=== PATIENT | female | born 1955 | race Caucasian/White ===

== ENCOUNTER 2020-11-17 07:29 | Outpatient (CLI) | payer MEDICARE, SELFPAY ==
--- NOTE | ~2020-11-17 | MM_ITS ---
EXAMINATION: MM screening anaid BI w jennie HISTORY: Screening TECHNIQUE: Craniocaudal and mediolateral oblique 3-D tomosynthesis images were obtained and synthetic 2-D images were generated. CAD analysis was submitted and interpreted. COMPARISON: Comparison to multiple prior studies sequentially, with oldest reviewed study dated 03/21. BREAST PARENCHYMAL COMPOSITION: There are scattered areas of fibroglandular density. FINDINGS: There is no evidence of suspicious mass, calcification, or architectural distortion to sugg est malignancy in either breast. There has been no suspicious interval change. IMPRESSION: 1. No mammographic evidence of malignancy. 2. Recommend routine screening mammography in one year. BI-RADS Category 1: Negative Reviewed, dictated and finalized at location A. LE BOX MAKER
== END 2020-11-17 07:30 | disposition home or self-care (01) ==
PROVIDERS: PCP Family Medicine; Visit Provider Physician Assistant Medical
DX: Z12.31 Encounter for screening mammogram for malignant neoplasm of breast (principal)
CPT/HCPCS: 77063; 77067

== ENCOUNTER 2021-10-16 00:29 | Day surgery (SDC) | payer MEDICARE, SELFPAY ==
[2021-10-04 13:52] VITALS: BMI 20.4
--- NOTE | 2021-10-14 09:36 | PM.HPGS ---
History of Present Illness History of Present Illness Consent: Risks, benefits, and alternatives have been discussed and questions answered. Patient agrees to proceed with procedure. Chief complaint: diarrhea Narrative: Gena Tomlinson is a 65 year old female with diarrhea for the past few months. this has finally improved.She also has positive hemoccult. Review of Systems Review of Systems: All systems reviewed & are unremarkable except as noted in HPI and below PMFSH Past Medical History Medical History BMI 20.0-20.9, adult Surgical History Surgical History Hx of appendectomy 1967 Family History Family History Father Family history of elevated blood lipids Family history of malignant neoplasm Mother Family history of malignant melanoma Sibling Breast cancer Follicular lymphoma Alzheimer's disease Other Family history of osteoporosis Social History Social History Smoking status: Never smoker Second hand tobacco smoke exposure: No Alcohol intake: never Substance use: never Substance use type: does not use Living arrangements: with family 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 Gender identity (if verbalized by the patient): Female Spiritual care concerns: No Meds Home Medications and Allergies Home Medications Medication Instructions Recorded Confirmed Type rosuvastatin 20 mg tablet 20 mg PO DAILY #90 tablet 10/15/21 10/16/21 Rx Allergies Allergy/AdvReac Type Severity Reaction Status Date / Time doxycycline Allergy Mild Rash Verified 10/16/21 06:53 sulfamethoxazole Allergy Rash Verified 10/16/21 06:53 [From Bactrim] trimethoprim [From Bactrim] Allergy Rash Verified 10/16/21 06:53 amoxicillin [From Augmentin] AdvReac Hives Verified 10/16/21 06:53 clavulanic acid AdvReac Hives Verified 10/16/21 06:53 [From Augmentin] Exam Const: General: alert Orientation/consciousness: patient oriented x3 Resp: Auscultation: clear to auscultation bilaterally Cardio: Rhythm: regular rhythm GI: GI Palp: Yes Soft to palpation and No Tenderness to palpation present (GI) Neuro: General: patient oriented x3 Assessment and Plan Assessment and plan (1) Diarrhea: Code(s): R19.7 - Diarrhea, unspecified Status: Acute Assessment and Plan: Colonoscopy with possible biopsy or polypectomy or cautery or injection of substances.
[2021-10-16 06:40] VITALS: BP 152/87; PULSE 92; RESP 18; TEMP 37.2; O2SAT 99; BMI 20.5
[2021-10-16] MEDS: LACTATED RINGERS 1,000 ML 150 ML IV CONT (07:03)
--- NOTE | 2021-10-16 07:19 | P.PNAN_ITS ---
Anes - Initial Pre Proc Eval Procedure: Operation Date: 10/16/21 08:00 Proposed Procedures p Colonoscopy - Nicolás Sanchez MD Date/Time: 10/16/21 07:19 Surgeon: Nicolás Sanchez MD Pre Op Diagnosis: diarrhea Patient Data Age: 65 Gender: F Height: 1.73 m Weight: 61.4 kg Last Vital Signs Temp 37.2 C 10/16/21 06:40 Pulse 92 10/16/21 06:40 Resp 18 10/16/21 06:40 BP 152/87 H 10/16/21 06:40 Pulse Ox 99 10/16/21 06:40 Allergies Allergy/AdvReac Type Severity Reaction Status Date / Time doxycycline Allergy Mild Rash Verified 10/16/21 06:53 sulfamethoxazole Allergy Rash Verified 10/16/21 06:53 [From Bactrim] trimethoprim [From Bactrim] Allergy Rash Verified 10/16/21 06:53 amoxicillin [From Augmentin] AdvReac Hives Verified 10/16/21 06:53 clavulanic acid AdvReac Hives Verified 10/16/21 06:53 [From Augmentin] Home Medications Medication Instructions Recorded Confirmed Type rosuvastatin 20 mg tablet 20 mg PO DAILY #90 tablet 10/15/21 10/16/21 Rx Patient hx anesthesia problems: none Family hx anesthesia problems: none Results Review: All pre-operative results and documents have been reviewed as part of the pre-operative evaluation. [facility] Past Medical History Medical History BMI 20.0-20.9, adult Surgical History Surgical History Hx of appendectomy 1967 Family History Family History Father Family history of elevated blood lipids Family history of malignant neoplasm Mother Family history of malignant melanoma Sibling Breast cancer Follicular lymphoma Alzheimer's disease Other Family history of osteoporosis Social History Social History Smoking status: Never smoker Second hand tobacco smoke exposure: No Alcohol intake: never Substance use: never Substance use type: does not use Living arrangements: with family 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 Informed Consent: The patient's anesthetic plan and its attendant risks and benefits were discussed with the patient/family/POA. Questions were solicited and answers provided to the satisfaction of the patient/family/POA.
[2021-10-16 08:15] VITALS: BP 114/67; PULSE 77; RESP 19; O2SAT 99
[2021-10-16 08:25] VITALS: BP 132/78; PULSE 70; RESP 15; O2SAT 100
[2021-10-16 08:35] VITALS: BP 156/89; PULSE 67; RESP 19; O2SAT 100
== END 2021-10-16 08:54 | disposition home or self-care (01) ==
PROVIDERS: PCP Family Medicine; Visit Provider Internal Medicine Gastroenterology
PROC: 0DJD8ZZ Inspection of Lower Intestinal Tract, Via Natural or Artificial Opening Endoscopic (ICD-10-PCS; CPT 45378; principal; 2021-10-16 08:00)
DX: R19.7 Diarrhea, unspecified (principal); R19.5 Other fecal abnormalities
CPT/HCPCS: 45378; J2704; J7120

== ENCOUNTER 2022-02-02 08:07 | Outpatient (CLI) | payer MEDICARE, SELFPAY ==
--- NOTE | ~2022-02-02 | MM_ITS ---
EXAMINATION: MM screening anaid BI w jennie HISTORY: Screening mammogram TECHNIQUE: Craniocaudal and mediolateral oblique 3-D tomosynthesis images were obtained and synthetic 2-D images were generated. CAD analysis was submitted and interpreted. COMPARISON: 11/17/2020, 09/18/2019, 06/25/2018 bilateral screening mammogram examinations BREAST PARENCHYMAL COMPOSITION: There are scattered areas of fibroglandular density. FINDINGS: There is no evidence of suspicious mass, calcification, or architectural distortion to sugg est malignancy in either breast. There has been no suspicious interval change. IMPRESSION: 1. No mammographic evidence of malignancy. 2. Recommend routine screening mammography in one year. BI-RADS Category 1: Negative Reviewed, dictated and finalized at location A.
== END 2022-02-02 08:08 | disposition home or self-care (01) ==
LOC: ANHIMG 08:09
PROVIDERS: PCP Family Medicine; Visit Provider Physician Assistant Medical
DX: Z12.31 Encounter for screening mammogram for malignant neoplasm of breast (principal)
CPT/HCPCS: 77063; 77067

== ENCOUNTER → 2022-06-12 13:54 | Outpatient (CLI) | payer MEDICARE, SELFPAY ==
--- NOTE | ~2022-06-12 | XR_ITS ---
XR clavicle LT DATE: 06/12/2022 14:05 INDICATION: Acquired deformity TECHNIQUE: AP and angled AP views of left clavicle COMPARISON: None FINDINGS: There is osteopenia. No fracture or dislocation, periosteal reaction or bone destruction of the left clavicle. Normal alig nment at the left sternoclavicular and acromioclavicular joints. IMPRESSION: Osteopenia; otherwise negative Reviewed, dictated and finalized at location B.
== END ==
PROVIDERS: PCP Family Medicine; Visit Provider Physician Assistant Medical
DX: M95.8 Other specified acquired deformities of musculoskeletal system (principal); M85.812 Other specified disorders of bone density and structure, left shoulder
CPT/HCPCS: 73000

== ENCOUNTER → 2022-09-12 12:15 | Outpatient (CLI) | payer MEDICARE, SELFPAY ==
--- NOTE | ~2022-09-12 | DEXA_ITS ---
Bone Density Report Name: XAVIER ROSENTHAL Age: 66 Sex: Female Ethnicity: White Date of : 1955 Indication: postmenopausal; screening for osteoporosis; height loss; Referring Provider: Kevin Oneil Study: Bone densitometry was performed. Exam Date: September 12, 2022 Accession number: [id number] Bone Density: Region BMD T-score Z-score Classification AP Spine (L1-L4) 0.881 -1.5 0.5 Osteopenia Femoral Neck (Left) 0.720 -1.2 0.6 Osteopenia Total Hip (Left) 0.926 -0.1 1.3 Normal Femoral Neck (Right) 0.709 -1.3 0.5 Osteopenia Total Hip (Right) 0.892 -0.4 1.0 Normal Total Hip Mean 0.909 -0.3 1.2 Normal World Health Organization criteria for BMD impression classify patients as: Normal (T-score at or above -1.0), Osteopenia (T-score between -1.0 and -2.5), or Osteoporosis (T-score at or below -2.5). 10-year Fracture Risk(1): Major Osteoporotic Fracture 8.3% Hip Fracture 0.9% Reported Risk Factors: [place] (), Neck BMD=0.709, BMI=21.7 (1) FRAX(R) Version 3.08. Fracture probability calculated for an untreated patient. Fracture probability may be lower if the patient has received treatment. Clinical Information Provided by Patient: Has used the following medications: Vitamin D, Calcium Patient maximum height was 67.75 Menopause Age: 49 Drinks caffeinated beverages Onset of menses at age 11 Number of children 5 Impression: The patient has low bone mass, based on the Total Spine T-score. The patient has an estimated ten-year risk of hip fracture of 0.9% and an estimated ten-year risk of major fracture of 8.3%, based on the WHO FRAX algorithm. Discussion: BONE DENSITY IS LOW AT ONE OR MORE SKELETAL SITES. This patient's lowest T-score is low at one or more skeletal sites. It meets the World Health Organization's (WHO) criteria for ?low bone mass? (T-score between -1.0 and -2.5). The patient's 10-year risk of fracture as calculated by FRAX is less than the threshold where pharmacological therapy is recommended by the National Osteoporosis Foundation (NOF). However, all treatment decisions require clinical judgment and consideration of individual patient factors, including patient preferences, comorbidities, previous drug use, risk factors not captured in the FRAX model (e.g., frailty, falls, vitamin D deficiency, increased bone turnover, interval significant decline in bone density) and possible under or overestimation of fracture risk by FRAX. The patient should follow a healthful lifestyle (good nutrition with adequate calcium and vitamin D, and appropriate weight-bearing exercise). Follow-Up: Consider repeating this study in 2 to 3 years to reassess this patient's status, or sooner if there is some new clinical indication. Reported by: MARCO on 09/12/2022 12:29:00 PM. ____
== END ==
PROVIDERS: PCP Family Medicine; Visit Provider Nurse Practitioner Family
DX: Z78.0 Asymptomatic menopausal state (principal); M85.88 Other specified disorders of bone density and structure, other site; M85.852 Other specified disorders of bone density and structure, left thigh; M85.851 Other specified disorders of bone density and structure, right thigh
CPT/HCPCS: 77080

== ENCOUNTER 2023-01-09 13:43 | Observation (INO) | payer MEDICARE, SELFPAY ==
[2023-01-09] VITALS (35 sets, daily range): BP systolic 134–176; BP diastolic 80–104; PULSE 78–113; RESP 9–22; TEMP 36.4; O2SAT 97–100; BMI 20.7
--- NOTE | ~2023-01-09 | MR_ITS ---
EXAMINATION: MR brain/brain stem wo/w con DATE: 01/10/2023 09:18 INDICATION: Vertigo. TECHNIQUE: Magnetic resonance imaging (MRI) of the brain and brainstem was performed without and with 12 mL MultiHance intravenous contrast. COMPARISON: Head CT 01/09/2023 FINDINGS: There are scattered areas of nonspecific increased T2-weighted signal intensity in the cere bral white matter. There is no intracranial hemorrhage, acute infarction, or abnormal intracranial ma ss lesion. The ventricles are normal in size. The paranasal sinuses are clear. The orbits are normal. The mastoid air cells are normal. IMPRESSION: 1. Moderate nonspecific cerebral white matter disease, which likely represents chronic small vessel i schemic disease. Reviewed, dictated and finalized at location A. TAL RETOUCHER IMPRESSION: 1. Moderate nonspecific cerebral white matter disease, which likely represents chronic small vessel ischemic disease.
--- NOTE | ~2023-01-09 | XR_ITS ---
EXAMINATION: XR chest 1V portable DATE: 01/09/2023 15:25 INDICATION: Dizziness. Nausea and vomiting. TECHNIQUE: A single frontal view of the chest was obtained. COMPARISON: None. FINDINGS: There is no pneumonia, pleural effusion, or pneumothorax. The heart size is normal. IMPRESSION: 1. No acute cardiopulmonary disease. Reviewed, dictated and finalized at location A. DHOOD TEACHER
--- NOTE | ~2023-01-09 | US_ITS ---
EXAMINATION: US carotid duplex BI DATE: 01/10/2023 09:32 INDICATION: Dizziness. TECHNIQUE: Grayscale, color Doppler, and pulsed Doppler images of the cervical carotid arteries were obtained. The degree of vessel stenosis is placed in one of the following categories: normal, <50%, 5 0-69%, >=70% but less than near-occlusion, near-occlusion, or total occlusion. Note that percent sten osis relative to normal distal artery lumen diameter is indirectly measured from velocity measurement s as described by Dwaine, et al. Radiology 2003; 229:[id number]. COMPARISON: None. FINDINGS: RIGHT: The right common carotid artery (CCA) peak systolic velocity (PSV) is 91 cm/s. The right internal car otid artery (ICA) PSV is 65 cm/s. The right ICA end-diastolic velocity (EDV) is 17 cm/s. The right IC A/CCA PSV ratio is 0.7. Grayscale and color Doppler images yield an estimate of <50% diameter reducti on from plaque in the ICA. There is antegrade flow in the right vertebral artery. LEFT: The left CCA PSV is 117 cm/s. The left ICA PSV is 71 cm/s. The left ICA EDV is 22 cm/s. The left ICA/ CCA PSV ratio is 0.6. Grayscale and color Doppler images yield an estimate of <50% diameter reduction from plaque in the ICA. There is antegrade flow in the left vertebral artery. IMPRESSION: 1. <50% stenosis in the right internal carotid artery. 2. <50% stenosis in the left internal carotid artery. Reviewed, dictated and finalized at location A. UITMENT MANAGER
--- NOTE | ~2023-01-09 | CT_ITS ---
EXAMINATION: CT brain wo con DATE: 01/09/2023 18:01 INDICATION: dizziness . TECHNIQUE: Computed tomography (CT) of the head was performed without intravenous contrast. The mA wa s adjusted according to patient size. Iterative reconstruction technique was employed. The dose-lengt h product was 605.33 mGy-cm. COMPARISON: None. FINDINGS: No acute intracranial hemorrhage or extra-axial fluid collection. No hydrocephalus, mass, or herniation. No acute ischemic infarct. Unremarkable dural venous sinus attenuation. No acute osseous abnormality. Minimal bilateral maxillary mucosal thickening, the remaining aerated spaces are clear. Mild atrophy and chronic white matter change. Atherosclerotic intracranial calcification. 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 Minimal right basal ganglia calcification. IMPRESSION: No acute intracranial process. Reviewed, dictated and finalized at location K. 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
--- NOTE | 2023-01-09 13:49 | ECG_ITS ---
Measurements Intervals [place] Rate: 87 P: 77 WY: 187 QRS: 1 QRSD: 92 T: 72 QT: 373 QTc: 449 Interpretive Statements SINUS RHYTHM POSSIBLE RIGHT ATRIAL ENLARGEMENT LEFT ATRIAL ENLARGEMENT CANNOT RULE OUT SEPTAL INFARCT, AGE INDETERMINATE BASELINE ARTIFACT- I, II, III ABNORMAL ECG NO PREVIOUS ECG AVAILABLE FOR COMPARISON Electronically Signed On 01-09-2023 14:17:39 CONSTRUCTION ANALYST by Laz Vaughn D.O.
[2023-01-09 14:10] LABS: Basophils Absolute Auto 0.1 K/mm3 (0.0-0.1); Basophils Percent Auto 0.6 % (0.2-1.2); Eosinophils Percent Auto 0.1 % (0-4.4); Hematocrit 45.5 % (37.0-47.0); Hemoglobin 14.7 g/dL (12.0-15.0); Immature Granulocyte Absolute 0.03 K/mm3 (0.00-0.031); Immature Granulocyte Percent A 0.3 % (0-0.5); Lymphocytes Absolute Auto 1.22 K/mm3 (0.9-3.2); Lymphocytes Percent Auto 11.6 % (18.3-44.2); Mean Corpuscular HGB Conc 32.3 g/dl (32-36); Mean Corpuscular Hemoglobin 30.8 pg (26-34); Mean Corpuscular Volume 95.2 fl (80-100); Mean Platelet Volume 10.9 fl (7.4-10.4); Monocytes Absolute Auto 0.2 K/mm3 (0.1-0.6); Monocytes Percent Auto 1.6 % (2.6-8.5); Neutrophils Absolute Auto 9.1 K/mm3 (1.3-6.7); Neutrophils Percent Auto 85.8 % (45.5-73.1); Platelet Count Result 311 k/mm3 (150-375); Red Blood Count 4.78 M/mm3 (4.2-5.4); Red Cell Distribution Width 13.7 % (11.5-14.5); White Blood Count 10.6 K/mm3 (4.5-10.0)
[2023-01-09 14:12] LABS: Alanine Aminotransferase 26 U/L (6-35); Albumin Level 4.4 g/dL (3.5-5.1); Alkaline Phosphatase 99 U/L (38-126); Anion Gap 8 mmol/L (8-16); Aspartate Amino Transferase 30 U/L (14-36); Bilirubin,Total 0.7 mg/dL (0.2-1.3); Blood Urea Nitrogen 19 mg/dL (7-17); Calcium 8.5 mg/dL (8.4-10.2); Carbon Dioxide 23 mmol/L (22-30); Chloride 107 mmol/L (98-107); Estimated CRCL calculation 73 ml/min; Estimated Glomerular Filt Rate > 60; Glucose 149 mg/dL (65-110); Potassium 3.8 mmol/L (3.4-5.0); Sodium 138 mmol/L (137-145)
--- NOTE | 2023-01-09 15:09 | PC.NURSE ---
attempted to move patient for orthostatic vitals again. pt does not want to be moved, states movement makes nausea and spinning much worse. pt is diaphoretic and flushed lying flat in bed. pt slightly hypertensive, but pt stating very anxious at this time.
--- NOTE | 2023-01-09 15:11 | ED.DIZZY ---
HPI - Dizziness General Chief Complaint: Dizziness Stated Complaint: UNSTEADY GAIT, N/V, RODRIGUEZ Time Seen by Provider: 01/09/23 15:07 Source: patient, family and EMS Mode of arrival: EMS History of Present Illness HPI Narrative: 67 years old white female came to the emergency room by ambulance with her complaining of sudden onset of dizziness after got out of bed this morning at 3 AM to go to the bathroom. Everything was spinning, associated with nausea and vomiting. Patient was not able to walk and was crawling on the floor at that time. She denies any headache, fever, chills, shortness of breath, chest pain, back pain or abdominal pain. History of similar symptoms years ago. The above symptoms get worse with any movement, get better laying still. Related Data Home Medications Medication Instructions Recorded Confirmed cholecalciferol (vitamin D3) 50 50 mcg PO DAILY 01/08/22 05/03/22 mcg (2,000 unit) capsule Allergies Allergy/AdvReac Type Severity Reaction Status Date / Time doxycycline Allergy Mild Rash Verified 01/09/23 13:54 sulfamethoxazole Allergy Rash Verified 01/09/23 13:54 [From Bactrim] trimethoprim [From Bactrim] Allergy Rash Verified 01/09/23 13:54 clavulanic acid AdvReac Hives Verified 01/09/23 13:54 [From Augmentin] Review of Systems Review of Systems: All systems reviewed & are unremarkable except as noted in HPI and below PMFSH Past Medical History Medical History BMI 20.0-20.9, adult Surgical History Surgical History Hx of appendectomy 1967 Family History Family History Father Family history of elevated blood lipids Family history of malignant neoplasm Mother Family history of malignant melanoma Sibling Breast cancer Follicular lymphoma Alzheimer's disease Adult hypothyroidism Other Family history of osteoporosis Social History Social History Smoking status: Never smoker Second hand tobacco smoke exposure: No Alcohol intake: never Substance use: never Substance use type: does not use Living arrangements: with family Occupation/Education: occupation 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 Patient feels that she is ready to go home Date: 01/09/23 Time: 18:09 Vital Signs Vital signs: Vital Signs Temperature 36.4 C L 01/09/23 13:50 Pulse Rate 95 01/09/23 13:50 Respiratory Rate 16 01/09/23 13:50 Blood Pressure 176/104 H 01/09/23 13:50 Pulse Oximetry 99 01/09/23 13:50 Oxygen Delivery Room Air 01/09/23 13:50 Temperature 3
[2023-01-09 15:52] LABS: Appearance Urine Cloudy (Clear); Bacteria Urine None Seen /hpf; Bilirubin Urine Negative (Negative); Blood Urine Negative (Negative); Color Urine Yellow (Yellow); Glucose Urine UA Trace mg/dL (Negative); Ketones Urine 1+ mg/dL (Negative); Leukocyte Esterase Ur Negative LEU/UL (Negative); Need Manual Microscopic Reviewed; Nitrate Urine Negative (Negative); Non Pathogenic Casts 0-2; Protein Urine Negative (Negative); RBC Urine 0-2 /hpf (0-2); Specific Grav Ur 1.013 (1.001-1.035); Squamous Epithelial Cell Urine None seen /hpf (Few); Urobilinogen Urine 0.2 mg/dL (<2.0); WBC Urine 0-5 /hpf
[2023-01-09 15:53] LABS: Add Urine Microscopic? YES
[2023-01-09] MEDS: ONDANSETRON INJ 4 MG/2 ML VIAL 8 MG IV PUSH (15:57)
[2023-01-09] MEDS: MECLIZINE HCL 25 MG TABLET PO (16:01)
[2023-01-09] MEDS: diazePAM (*CRX) 5 MG TABLET PO (16:01)
[2023-01-09 16:09] LABS: Troponin I < 0.012 ng/mL (0.000-0.034)
[2023-01-09] MEDS: diazePAM INJ (*CRX) 10 MG/2 ML SYRINGE 5 MG IV PUSH (19:07)
--- NOTE | 2023-01-09 19:09 | PC.NURSE ---
bedside shift report given to vicky phelps
[2023-01-09] MEDS: ONDANSETRON INJ 4 MG/2 ML VIAL IV PUSH (23:05)
--- NOTE | 2023-01-09 23:21 | PM.IMHP ---
H&P: HPI History of Present Illness Date/Time: 01/09/23 23:21 Chief Complaint: Dizziness Narrative: This is a 67-year-old female patient came to the emergency room by ambulance today complaining of sudden onset of dizziness. She had no focal weakness no facial droop or slurred speech. The patient had a sudden onset of dizziness when she attempted to get out of bed at 3:00 a.m. this morning to go to the bathroom. She also had some nausea and vomiting with that. Patient stated that she had similar symptoms a year ago. The symptoms are worse with movement. As long she lay still she does not have this problem. White count mildly elevated 10.6. The patient did not attempt to take anything for this dizziness. She denies any fever chills. The patient was given Zofran, Antivert, Valium, and IV fluids in the emergency room. Head CT was read as no acute intracranial process. Chest x-ray was read as no acute cardiopulmonary disease. Patient is being admitted to observation status on the date of service of 01/09/2023. Review of Systems Review of Systems: See HPI All systems reviewed & are unremarkable except as noted in HPI and below Constitutional: Constitutional: Reports as per HPI and Reports no additional constitutional complaints Eyes: Eyes: Reports as per HPI and Reports no additional eye complaints ENT: Reports system reviewed and no additional complaints, except as documented and Reports Normal hearing present Cardiovascular: Cardiovascular: Reports no additional cardiovascular complaints Respiratory: Respiratory: Reports no additional respiratory complaints and Reports no additional respiratory complaints Gastrointestinal: Gastrointestinal: Reports as per HPI and Reports no additional gastrointestinal complaints Musculoskeletal: Musculoskeletal: Reports no additional musculoskeletal complaints Integumentary/Breasts: Skin/Breast: Reports system reviewed and no additional complaints, except as docu and Reports as per HPI Neurologic: Reports system reviewed and no additional complaints, except as documented, Reports as per HPI and Reports Normal hearing present Psychiatric: Psychiatric: Reports no additional psychiatric complaints and Reports as per HPI Endocrine: Endocrine: Reports no additional endocrine complaints Hematologic/Lymphatic: Hematologic/Lymphatic: Reports no additional hematologic/lymphatic complaints Allergic/Immunologic: Allergic/Immunologic: Reports no additional allergic/immunologic complaints [facility] Past Medical History Medical History (Updated 01/10/23 @ 00:04 by Sofía Cheung NP) BMI 20.0-20.9, adult Hyperlipidemia Osteopenia Pilonidal cyst without infection Removal of Surgical History Surgical History (Updated 01/10/23 @ 00:04 by Sofía Cheung NP) H/O dilation and curettage H/O umbilical hernia repair Hx of appendectomy 1967 Family History Family History Father Family history of elevated blood lipids Family history of malignant neoplasm Mother Family history of malignant melanoma Sibling Breast cancer Follicular lymphoma Alzheimer's disease Adult hypothyroidism Other Family history of osteoporosis Social History Social History (Updated 01/10/23 @ 00:08 by Sofía Cheung NP) Social History: The patient lives at home with her . 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 The patient has 5 children. She is a lifelong nonsmoker. Her is a durable power securities attorney for healthcare Code status full code Smoking status: Never smoker Second hand tobacco smoke exposure: No Alcohol intake: never Substance use: never Substance use type: does not use Lack of Transportation: No Lack of Food: Never True Current Housing: I Have Housing Concerned About Future Housing: No Difficulty Paying Gas/Kristie
--- NOTE | 2023-01-10 | ECHO_ITS ---
Patient Info Name: Gena Tomlinson Age: 67 years : 1955 Gender: Female Ht: 68 in Wt: 136 lbs BSA: 1.72 m2 HR: 76 bpm BP: 147 / 94 mmHg Technical Quality: Fair Exam Date: 01/10/2023 11:21 AM Exam Location: [facility] Pulmonary Exam Room: [facility] Patient Status: Outpatient Admit Date: 01/09/2023 Staff Ordering Physician: Sofía Cheung NP Passenger Rate Clerk: Karma William RDCS Attending Provider: Paulo Ryan MD Referring Physician: Skye CARCAMO; Exam Type: CA echo doppler color flow Study Info Indications - dizziness Complete two-dimensional, color flow and Doppler transthoracic echocardiogram is performed. Summary 1. Complete two-dimensional, color flow and Doppler transthoracic echocardiogram is performed. 2. Left ventricular chamber dimension is normal. 3. Left ventricular systolic function is normal, estimated at 60-65%. 4. The left ventricular diastolic function is grade I diastolic dysfunction. 5. E/e' 10 is mildly elevated. 6. There is mild aortic valve sclerosis. 7. There is trace mitral valve regurgitation. 8. There is trace tricuspid valve regurgitation. 9. No pulmonary hypertension, estimated pulmonary arterial systolic pressure is 26 mmHg. 10. There is trace pulmonic regurgitation. Left Ventricle E/e' 10 is mildly elevated. Left ventricular chamber dimension is normal. Left ventricular systolic function is normal, estimated at 60-65%. The left ventricular diastolic function is grade I diastolic dysfunction. Right Ventricle Right ventricular chamber dimension is normal. Right ventricular systolic function is normal. Left Atria Left atrial chamber dimension is normal. Right Atria Right atrial chamber dimension is normal. Aortic Valve The aortic valve is trileaflet. There is mild aortic valve sclerosis. There is no aortic valve stenosis. There is no aortic valve regurgitation. Pulmonic Valve There is trace pulmonic regurgitation. Mitral Valve There is no mitral valve stenosis. There is trace mitral valve regurgitation. Tricuspid Valve There is trace tricuspid valve regurgitation. No pulmonary hypertension, estimated pulmonary arterial systolic pressure is 26 mmHg. Pericardium/Pleural There is no pericardial effusion. Inferior Vena Cava Normal inferior vena cava with >50% collapse upon inspiration consistent with normal right atrial pressure, 5 mmHg. Aorta The aortic root size at the sinus of Valsalva is normal. Left Ventricular Outflow Tract Name Value Normal LVOT 2D LVOT Diameter 2.0 cm LVOT Doppler LVOT Peak Gradient 4 mmHg LVOT Mean Gradient 2 mmHg LVOT VTI 19 cm LVOT VTI/AV VTI Ratio 0.8 LVOT Stroke Volume 59 ml LVOT CO 13.4 l/min LVOT CI 7.8 l/min/m2 Pulmonic Valve Name Value Normal
[2023-01-10] MEDS: SODIUM CHLORIDE 0.9% IV 1,000 ML 100 ML IV CONT (00:38)
[2023-01-10 06:00] VITALS: BP 136/76; PULSE 93; RESP 14; TEMP 36.4; O2SAT 98
[2023-01-10 07:12] LABS: Basophils Absolute Auto 0.1 K/mm3 (0.0-0.1); Basophils Percent Auto 0.6 % (0.2-1.2); Eosinophils Percent Auto 0.2 % (0-4.4); Hematocrit 41.4 % (37.0-47.0); Hemoglobin 13.6 g/dL (12.0-15.0); Immature Granulocyte Absolute 0.09 K/mm3 (0.00-0.031); Immature Granulocyte Percent A 0.7 % (0-0.5); Lymphocytes Absolute Auto 1.72 K/mm3 (0.9-3.2); Lymphocytes Percent Auto 14.1 % (18.3-44.2); Mean Corpuscular HGB Conc 32.9 g/dl (32-36); Mean Corpuscular Hemoglobin 30.1 pg (26-34); Mean Corpuscular Volume 91.6 fl (80-100); Mean Platelet Volume 10.7 fl (7.4-10.4); Monocytes Absolute Auto 0.7 K/mm3 (0.1-0.6); Monocytes Percent Auto 5.4 % (2.6-8.5); Neutrophils Absolute Auto 9.7 K/mm3 (1.3-6.7); Platelet Count Result 326 k/mm3 (150-375); Red Blood Count 4.52 M/mm3 (4.2-5.4); Red Cell Distribution Width 13.8 % (11.5-14.5); White Blood Count 12.2 K/mm3 (4.5-10.0)
[2023-01-10 07:24] LABS: Alanine Aminotransferase 26 U/L (6-35); Albumin Level 3.9 g/dL (3.5-5.1); Alkaline Phosphatase 68 U/L (38-126); Anion Gap 7 mmol/L (8-16); Aspartate Amino Transferase 25 U/L (14-36); Bilirubin,Total 0.5 mg/dL (0.2-1.3); Blood Urea Nitrogen 22 mg/dL (7-17); Calcium 8.3 mg/dL (8.4-10.2); Carbon Dioxide 26 mmol/L (22-30); Chloride 105 mmol/L (98-107); Estimated CRCL calculation 64 ml/min; Estimated Glomerular Filt Rate > 60; Glucose 205 mg/dL (65-110); Magnesium 2.2 mg/dL (1.6-2.3); Phosphorus 3.1 mg/dL (2.5-4.5); Potassium 3.4 mmol/L (3.4-5.0); Sodium 138 mmol/L (137-145)
[2023-01-10 07:25] LABS: Lactic Acid Reflex 2.4 mmol/L (0.7-2.0)
[2023-01-10 07:57] LABS: Thyroid Stimulating Hormone Reflex 0.467 uIU/mL (0.465-4.68)
[2023-01-10] MEDS: ROSUVASTATIN 10 MG TABLET 20 MG PO (08:07)
[2023-01-10] MEDS: CHOLECALCIFEROL 1,000 UNITS TABLET 2000 UNITS PO (08:07)
[2023-01-10] MEDS: MECLIZINE HCL 25 MG TABLET PO ×2 (08:07→13:08)
[2023-01-10] MEDS: ASPIRIN 81 MG CHEWABLE TABLET PO (08:07)
[2023-01-10 10:06] LABS: Reflex Lactic Acid Yes or No Add Lactic
[2023-01-10 10:41] LABS: Lactic Acid 3.6 mmol/L (0.7-2.0)
[2023-01-10 14:00] VITALS: BP 126/102; BP 133/90; BP 135/74; PULSE 91; RESP 16; TEMP 36.6; O2SAT 98
[2023-01-10 15:37] LABS: Lactic Acid Reflex 1.3 mmol/L (0.7-2.0)
--- NOTE | 2023-01-10 16:13 | PM.DS ---
DS: Admitting Diagnosis Discharge Date 01/10/2023 Admitting Diagnosis Vertigo Elevated blood pressure reading Hyperlipidemia DS: Discharge Diagnosis Discharge Diagnosis (1) Vertigo: Code(s): R42 - Dizziness and giddiness Status: Acute Assessment and Plan: Likely BPPV Orthostatic blood pressures negative. Echo is ordered and results pending. MRI of the brain without acute infarction Carotid Doppler <50% right and left ICA Continue with Valium PRN Treated with IV fluids initially. Dizziness resolved. (2) Elevated blood pressure reading: Code(s): R03.0 - Elevated blood-pressure reading, without diagnosis of hypertension Status: Acute Assessment and Plan: P.r.n. hydralazine ordered but not given. BP 135/74 at discharge. Monitor (3) Hyperlipidemia: Code(s): E78.5 - Hyperlipidemia, unspecified Status: Chronic Assessment and Plan: Continue with rosuvastatin (4) Lactic acidosis: Code(s): E87.20 - Acidosis, unspecified Status: Acute Assessment and Plan: Lactic acid 2.4 to 3.6 to 1.3. WBC 12. Afebrile. No focal complaints suggestive of pneumonia, UTI, GI infection, meningitis or other infection. Patient is currently taking amoxicillin for dental procedure. UA negative Chest X-ray negative. No open wounds, abd pain or GI complaints. No nuchal rigidity and dizziness resolved with meclizine. No hypotension episode or concerns for hematochezia, melena or hematemesis. (5) Leukocytosis: Code(s): D72.829 - Elevated white blood cell count, unspecified Status: Acute Assessment and Plan: WBC 10 to 12. May be reactive. As above. DS: Summary Hospital Course Reason for hospitalization: Dizziness Hospital Course: Gena Tomlinson?is a 67-year-old female patient with hyperlipidemia who presented to the emergency room by ambulance for sudden onset of dizziness.? She reported no focal weakness, facial droop or slurred speech.? The patient had a sudden onset of dizziness when she attempted to get out of bed at 3:00 a.m. the morning of admission while attempting to go to the bathroom.? She also had some nausea and vomiting as well.? Patient stated that she had similar symptoms a year ago.? The symptoms are worse with movement.? As long she lay still she does not have this problem.? White count mildly elevated 10.6.? The patient did not attempt to take anything for her symptoms.? She denied fever or chills.? The patient was given Zofran, Antivert, Valium, and IV fluids in the emergency room.? Head CT was read as no acute intracranial process.? Chest x-ray was read as no acute cardiopulmonary disease.? Patient was admitted for further evaluation and management as she had persistent symptoms in the ED and was unable to ambulate. She reported previous broken crown and was currently on antibiotics. Lactic acid was elevated 2.4 initially and repeat was 3.6. She denied new symptoms and reported dizziness had resolved upon assessment. No respiratory complaints, abnormal breath sound and CXR was negative. No dysuria, urgency or frequency and UA was negative. She did report taking antibiotics for dental extraction, however, she denied dental pain, RODRIGUEZ or evidence of dental abscess. No open wounds noted and no GI complaints. She was treated with IV fluids and PO meclizine. Carotid US showed <50% stenosis bilaterally, MRI brain without acute infarction, and echocardiogram obtained but results were pending. She remained in stable condition with resolution of symptoms. Repeat lactic acid 1.3. She was discharged home with spouse in stable condition. She was counseled on healthy diet and activity. She will follow up with PCP. Meclizine PRN Q8 hours was continued. Status at Discharge Cognitive/behavioral status at discharge: AOx4, no focal deficits. Functional status at discharge: independent ambulation Overall status at discharge: patient is back to baseline
== END 2023-01-10 16:50 | disposition home or self-care (01) ==
LOC: ANHED 18:24 → ANH3MEDSUR 22:33
PROVIDERS: Nurse Practitioner; Nurse Practitioner Family; Admitting Provider Internal Medicine; Emergency Provider Emergency Medicine; PCP Family Medicine; Visit Provider Student in an Organized Health Care Education/Training Program
DX: R42 Dizziness and giddiness (principal); R03.0 Elevated blood-pressure reading, without diagnosis of hypertension; E78.5 Hyperlipidemia, unspecified; E87.20 Acidosis, unspecified; D72.829 Elevated white blood cell count, unspecified; R11.2 Nausea with vomiting, unspecified; R26.81 Unsteadiness on feet; I11.0 Hypertensive heart disease with heart failure; I50.30 Unspecified diastolic (congestive) heart failure; R90.82 White matter disease, unspecified; I08.3 Combined rheumatic disorders of mitral, aortic and tricuspid valves; R94.31 Abnormal electrocardiogram [ECG] [EKG]; M85.80 Other specified disorders of bone density and structure, unspecified site; Z79.899 Other long term (current) drug therapy
CPT/HCPCS: 36415; 70450; 70553; 71045; 80053; 81001; 83605; 83735; 84100; 84443; 84484; 85025; 86038; 86039; 93005; 93306; 93880; 96374; 96375; 96376; 99285; A9270; A9577; G0378; J2405; J3360; J7030

== ENCOUNTER 2023-07-05 07:20 | Outpatient (CLI) | payer MEDICARE, SELFPAY ==
--- NOTE | ~2023-07-05 | MM_ITS ---
EXAMINATION: MM screening anaid BI w jennie HISTORY: Screening mammogram, family history of breast cancer in her sister. TECHNIQUE: Craniocaudal and mediolateral oblique 3-D tomosynthesis images were obtained and synthetic 2-D images were generated. CAD analysis was submitted and interpreted. COMPARISON: 02/02/2022, 11/17/2020, 09/18/2019 BREAST PARENCHYMAL COMPOSITION: There are scattered areas of fibroglandular density. FINDINGS: No suspicious mass, calcification, or architectural distortion are identified in either lissa ast to suggest malignancy. There has been no suspicious interval change. IMPRESSION: 1. No mammographic evidence of malignancy. 2. Recommend routine screening mammography in one year. BI-RADS Category 1: Negative Reviewed, dictated and finalized at location B.
== END 2023-07-05 07:21 | disposition home or self-care (01) ==
LOC: ANHIMG 07:23
PROVIDERS: PCP Family Medicine; Visit Provider Family Medicine
DX: Z12.31 Encounter for screening mammogram for malignant neoplasm of breast (principal)
CPT/HCPCS: 77063; 77067

== ENCOUNTER 2025-06-07 13:42 | Outpatient (CLI) | payer MEDICARE, SELFPAY ==
--- NOTE | ~2025-06-07 | DEXA_ITS ---
Bone Density Report Name: XAVIER ROSENTHAL Age: 69 Sex: Female Ethnicity: White Date of : 1955 Indication: osteopenia; height loss; prior fracture; cancer; Referring Provider: TERRA WELCH Study: Bone densitometry was performed. Exam Date: June 07, 2025 Accession number: [id number] Bone Density: Region BMD T-score Z-score Classification AP Spine(L1-L4) 0.859 -1.7 0.5 Osteopenia Femoral Neck (Left) 0.687 -1.5 0.4 Osteopenia Total Hip (Left) 0.920 -0.2 1.4 Normal Femoral Neck (Right) 0.681 -1.5 0.4 Osteopenia Total Hip (Right) 0.925 -0.1 1.4 Normal Total Hip Mean 0.923 -0.2 1.4 Normal World Health Organization criteria for BMD impression classify patients as: Normal (T-score at or above -1.0), Osteopenia (T-score between -1.0 and -2.5), or Osteoporosis (T-score at or below -2.5). 10-year Fracture Risk(1): Major Osteoporotic Fracture 15% Hip Fracture 2.4% Reported Risk Factors: [place] (), Neck BMD=0.681, BMI=21.0, previous fracture (1) FRAX(R) Version 3.08. Fracture probability calculated for an untreated patient. Fracture probability may be lower if the patient has received treatment. Previous Exams: Region Exam Age BMD T-score BMD Change BMD Change Date g/cm2 vs Baseline vs Previous AP Spine (L1-L4) 06/07/2025 69 0.859 -1.7 -0.001 (-0.1%) -0.010 (-1.1%) 06/25/2018 62 0.868 -1.6 0.009 (1.0%) 0.009 (1.0%) 09/17/2015 59 0.859 -1.7 Total Hip(Left) 06/07/2025 69 0.920 -0.2 0.004 (0.4%) -0.023 (-2.4%) 06/25/2018 62 0.943 0.0 0.027 (2.9%) 0.027 (2.9%) 09/17/2015 59 0.916 -0.2 Total Hip(Right) 06/07/2025 69 0.925 -0.1 -0.005 (-0.5%) 0.027 (3.0%)# 06/25/2018 62 0.898 -0.4 -0.032 (-3.4%) -0.032 (-3.4%) 09/17/2015 59 0.930 -0.1 *Denotes significance at 95% confidence level, LSC for AP Spine = 0.022 g/cm2, LSC for Total Hip = 0.027 g/cm2 # Denotes dissimilar scan types or analysis methods Clinical Information Provided by Patient: Has had a low trauma fracture Has used the following medications: Vitamin D, Calcium Has the following medical conditions: Cancer Patient maximum height was 68.0 Menopause Age: 50 Drinks caffeinated beverages Onset of menses at age 11 Number of children 5 Impression: The patient has low bone mass, based on the Total Spine T-score. The patient has an estimated ten-year risk of hip fracture of 2.4% and an estimated ten-year risk of major fracture of 15%, based on the WHO FRAX algorithm. The patient has risk factors, including: previous fracture. No significant bone loss was observed. Discussion: BONE DENSITY IS LOW AT ONE OR MORE SKELETAL SITES. This patient's lowest T-score is low at one or more skeletal sites. It meets the World Health Organization's (WHO) criteria for ?low bone mass? (T-score between -1.0 and -2.5). The patient's 10-year risk of fracture as calculated by FRAX is less than the threshold where pharmacological therapy is recommended by the National Osteoporosis Foundation (NOF). However, all treatment decisions require clinical judgment and consideration of individual patient factors, including patient preferences, comorbidities, previous drug use, risk factors not captured in the FRAX model (e.g., frailty, falls, vitamin D deficiency, increased bone turnover, interval significant decline in bone density) and possible under or overestimation of fracture risk by FRAX. The patient should follow a healthful lifestyle (good nutrition with adequate calcium and vitamin D, and appropriate weight-bearing exercise). Follow-Up: Consider repeating this study in 2 to 3 years to reassess this patient's status, or sooner if there is some new clinical indication. Reported by: ANNETTE on 06/07/2025 2:33:00 PM. Reviewed, dictated and finalized at location A.
--- NOTE | ~2025-06-07 | MM_ITS ---
EXAMINATION: MM screening anaid BI w jennie HISTORY: Screening TECHNIQUE: Craniocaudal and mediolateral oblique 3-D tomosynthesis images were obtained and synthetic 2-D images were generated. CAD analysis was submitted and interpreted. COMPARISON: Comparison to multiple prior studies sequentially, with oldest reviewed study dated 06/25. BREAST PARENCHYMAL COMPOSITION: There are scattered areas of fibroglandular density. FINDINGS: There is no evidence of suspicious mass, calcification, or architectural distortion to sug gest malignancy in either breast. IMPRESSION: 1. No mammographic evidence of malignancy. 2. Recommend routine screening mammography in one year. BI-RADS Category 1: Negative Reviewed, dictated and finalized at location B.
--- OUTSIDE RECORDS SUMMARY | 2025-06-07 13:56 | XMS_ITS | Clinical Summary ---
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 Name Role Phone Unavailable Primary Care Provider Unavailabl e Social History Tobacco Use Types Packs/Day Years Used Date Smoking Tobacco: Never Assessed Comments Unknown Sex and Gender Information Value Date Recorded Sex Assigned at Not on file Legal Sex Female 8:37 AM CDT Gender Identity Not on file Sexual Orientation Not on file Plan of Treatment Health Maintenance Due Date Last Done Comments Hepatitis C Virus (HCV) Screening 1955 TdaP Immunization 1955 Cologuard 1998 Colonoscopy 1998 Colorectal Cancer Screening 1998 Immunochemical Fecal Occult Blood 1998 Pneumococcal Immunization (5 0+ years) (1 of 1 - PCV) 2003 Zoster Immunization (1 of 2) 2003 SARS-COV-2 Immunization ( - season) 2024 02/28/2021, 02/04/2021 Influenza Immunization (#1) 2025 11/2 04/2021, 09/03/2020, 09/01/2019 Respiratory Syncytial Virus (RSV) Immunization (Adult) (1 - 1-dose 75+ series) 2028 Hepatitis B Immunization Aged Out No longer eligible based on patient's age to complete this topic Human Papillomavirus (HPV) Immunization Aged Out No longer eligible b ased on patient's age to complete this topic Meningococcal Immunization (ACWY) Aged Out No longer eligible b ased on patient's age to complete this topic Rotavirus Immunization Aged Out No lo nger eligible based on patient's age to complete this topic
--- OUTSIDE RECORDS SUMMARY | 2025-06-07 13:56 | XMS_ITS | Clinical Summary ---
Author Organization [facility] Address [address] [place] [address] Care Team Providers Care Cad Draftsman Name Role Phone Mark Kaplan MD Primary Care Provider Allergies Active Allergy Reactions Criticality Noted Date Comments Amoxicillin-Pot Clavulanate Hives Medium 05/16/20 23 Sulfamethoxazole-Trimethoprim Rash Medium 2022 Doxycycline Rash Medium 05/16/2023 Medications rosuvastatin (CRESTOR) 40 mg tablet Take 1 tablet (40 mg total) by mouth daily 3 Active aspirin 81 mg enteric coated tablet Take 1 tablet (81 mg total) by mouth daily Active cholecalciferol (VITAMIN D-3) 2000 unit tablet Active calcium carbonate-vitam in D3 1,500 mg (600mg elemental) -800 unit per tablet Take 1 tablet by mouth daily Active azelaic acid 15 % gel Apply topically daily apply to face 5 Active hydroxyurea (HYDREA) 500 mg capsuleIndicati ons:Other specified abnormal findings of blood chemistry,Other elevated white blood cell (WBC) count Take 2 capsules (1,000 mg total) by mouth 2 (two) times a day 360 capsule 3 5 Active lisinopriL (PRINIVIL,ZESTR IL) 10 mg tablet Take 1 tablet (10 mg total) by mouth daily Active Active Problems Problem Noted Date Diagnosed Date Polycythemia vera 04/20/2025 Diastolic dysfunction 05/16/2023 Encounters Date Type Department Care Team Description 05/18/2025 10:45 AM CDT Infusion [facility] at [address] [phone] Polycythemia vera (HCC) (Primary Dx); Other elevated white blood cell (WBC) count; Other specified abnormal findings of blood chemistry; JAK2 gene mutation 05/18/2025 10:15 AM CDT Office Visit [facility] Hematology [address] [place] [phone] Chiara Colon MD Other specified abnormal findings of blood chemistry; Other elevated white blood cell (WBC) count; JAK2 gene mutation 05/18/2025 9:45 AM CDT Lab [facility] at [address] [address] Other specified abnormal findings of blood chemistry; Other elevated white blood cell (WBC) count; JAK2 gene mutation 05/13/2025 7:47 AM CDT - 05/13/2025 11:59 PM CDT Hospital Encounter [facility] [address] [place] [address] Other elevated white blood cell (WBC) count; Other specified abnormal findings of blood chemistry; JAK2 gene mutation; Leg swelling Discharge Disposition: Discharge to home or self care 05/12/2025 Telephone [facility] Hematology [address] [place] [phone] Marilee Jacques 05/12/2025 Orders Only [facility] Hematology [address] [place] [phone] Marilee Jacques Other elevated white blood cell (WBC) count (Primary Dx); Other specified abnormal findings of blood chemistry; JAK2 gene mutation 05/06/2025 Orders Only [facility] Hematology [address] [place] [address] [address] [place] [phone] Marilee Jacques Other elevated white blood cell (WBC) count (Primary Dx); Other specified abnormal findings of blood chemistry; JAK2 gene mutation 05/04/2025 4:15 PM CDT Telemedicine [facility] Hematology [address] [place] [phone] Chiara Colon MD Other elevated white blood cell (WBC) count; Other specified abnormal findings of blood chemistry 04/30/2025 Orders Only [facility] Hematology [facility] [address] [place] [phone] Marilee Jacques Other specified abnormal findings of blood chemistry; Other elevated white blood cell (WBC) count; JAK2 gene mutation 04/27/2025 Orders Only [facility] [address] [place] [address] Chiara Colon MD Other elevated white blood cell (WBC) count; JAK2 gene mutation 04/26/2025 4:21 PM CDT - 04/26/2025 11:59 PM CDT [address] [phone] Other elevated white blood cell (WBC) count; JAK2 gene mutation; Polycythemia vera (HCC); Elevated hematocrit; Elevated platelet count Discharge Disposition: Discharge to home or self care 04/26/2025 10:00 AM CDT Infusion [facility] at [address] [phone] Polycythemia vera (HCC) (Primary Dx); Other elevated white blood cell (WBC) count; Elevated hematocrit; Elevated platelet count 04/26/2025 9:45 AM CDT Infusion [facility] at [address] [phone] Other specified abnormal findings of blood chemistry; Other elevated white blood cell (WBC) count; JAK2 gene mutation 04/26/2025 9:15 AM CDT Lab [facility] at [address] [address] Other elevated white blood cell (WBC) count; Other specified abnormal findings of blood chemistry; JAK2 gene mutation 04/21/2025 Orders Only [facility]ematology [facility] [address] [place] [phone] Marilee Jacques JAK2 gene mutation (Primary Dx); Other elevated white blood cell (WBC) count; Other specified abnormal findings of blood chemistry 04/20/2025 4:30 PM CDT Telemedicine [facility]ology [address] [facility] [address] [place] [address] Chiara Colon MD Other specified abnormal findings of blood chemistry (Primary Dx); Other elevated white blood cell (WBC) count; JAK2 gene mutation 04/16/2025 9:45 AM CDT Telemedicine [facility] Hematology [facility] Floor [address] [place] [phone] Chiara Colon MD JAK2 gene mutation (Primary Dx); Other elevated white blood cell (WBC) count; Other specified abnormal findings of blood chemistry 04/15/2025 1:59 PM CDT - 04/15/2025 11:59 PM CDT Hospital Encounter [facility] 1 [facility] 1st [place] [address] Discharge Disposition: Discharge to home or self care 04/15/2025 Orders Only [facility] Hematology [facility] Floor [address] [place] [phone] Marilee Jacques Other elevated white blood cell (WBC) count (Primary Dx); Other specified abnormal findings of blood chemistry 04/15/2025 Orders Only [facility]ematology [facility] 6 [place] [phone] Marilee Jacques Other elevated white blood cell (WBC) count (Primary Dx); Other specified abnormal findings of blood chemistry 04/12/2025 10:00 AM CDT Lab [facility] at [address] [address] Other elevated white blood cell (WBC) count; Other specified abnormal findings of blood chemistry 04/12/2025 Orders Only [facility]emat[facility] Floor [address] [place] [phone] Marilee Jacques 04/09/2025 Orders Only [facility]ematology [facility] Floor 6 [place] [phone] Mariele Jacques Other elevated white blood cell (WBC) count (Primary Dx); Other specified abnormal findings of blood chemistry 04/06/2025 11:30 AM CDT Lab [facility] at [facility] [address] [place] [address] Other elevated white blood cell (WBC) count 04/06/2025 10:15 AM CDT Office Visit [facility] [address] [facility] [address] [place] [address] Chiara Colon MD Other elevated white blood cell (WBC) count; Other specified abnormal findings of blood chemistry 03/30/2025 Telephone [facility] Hematology [facility] Floor [address] [place] [address] Hien Felton from Last 3 Months Surgical History Surgery Date Site/Laterality Comments INCISIONAL HERNIA REPAIR APPENDECTOMY Medical History Medical History Date Comments Hyperlipidemia Family History Medical History Relation Name Comments Alzheimer's disease Brother Coronary artery disease Brother Hyperlipidemia Father Leukemia Father Dementia Mother Melanoma Mother Osteoporosis Mother Alzheimer's disease Mother's Brother Alzheimer's disease Mother's Sister Breast cancer Sister Follicular cancer of thyroid (HCC) Sister Hypothyroidism Sister Relation Name Status Comments Brother Father Mother Mother's Brother Mother's Sister Sister Social History Tobacco Use Types Packs/Day Years Used Date Smoking Tobacco: Never Smokeless Tobacco: Never AUDIT-C Answer Date Recorded Frequency of Alcohol Consumption Not on file 04/06/2025 Q2: How many drinks containi ng alcohol do you have on a typical day when you are drinking? 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 Gender Identity Not on file Sexual Orientation Not on file Obstetrics History Last Filed Vital Signs Vital Sign Reading Time Taken Comments Blood Pressure 151/87 05/18/2025 12:17 PM CDT Pulse 70 05/18/2025 12:17 PM CDT Temperature 36.4 C (97.5 F) 05/18/2025 10:03 AM CDT Respiratory Rate 18 05/18/2025 12:1 7 PM CDT Oxygen Saturation 100% 05/18/2025 12: 17 PM CDT Inhaled Oxygen Concentration - - Weight 59.4 kg (130 lb 15.3 oz) 025 10:03 AM CDT Height 172 cm (5' 7.72) 04/06/2025 10: 11 AM CDT Body Mass Index 20.08 04/06/2025 10:11 AM CDT Plan of Treatment Health Maintenance Due Date Last Done Comments Breast Cancer Screening-Mammogram 1953 Colon Cancer Screening-Colonoscopy 1955 Depression Screening 1953 Fall Risk Assessment 1953 Osteoporosis Screening-Bone Density Scan 1953 DTaP/Tdap/Td Vaccine (1 - Tdap) 1964 Hepatitis B Screening 1971 Pneumococcal vaccine 65+ (1 of 2 - PCV) 1972 Zoster Vaccine (1 of 2) 1972 Well Visit 65+ 2018 Covid-19 Vaccine (4 - 2023-2 5 season) 2024 04/11/2022, 02/28/2021, 02/04/2021 Influenza Vaccine (#1) 2025 , 09/29/2021, 09/03/2020, Additional history exists Hepatitis C Screening Completed 04/12/2025 Procedures Procedure Name Priority Date/Time Associated Diagnosis Comments COMPREHENSIVE METABOLIC PANEL Routine 06/01/2025 3:30 PM CDT Other specified abnormal findings of blood chemistry Other elevated white blood cell (WBC) count JAK2 gene mutation CBC WITH AUTO DIFFERENTIAL Routine 06/01/2025 3:30 PM CDT Other specified abnormal findings of blood chemistry Other elevated white blood cell (WBC) count JAK2 gene mutation EGFR Routine 05/18/2025 9:54 AM CDT Other specified abnormal findings of blood chemistry Other elevated white blood cell (WBC) count JAK2 gene mutation DIFFERENTIAL AUTO Routine 05/18/2025 9:5 4 AM CDT Other specified abnormal findings of blood chemistry Other elevated white blood cell (WBC) count JAK2 gene mutation CBC WITH AUTO DIFFERENTIAL Routine 05/18/2025 9:54 AM CDT Other specified abnormal findings of blood chemistry Other elevated white blood cell (WBC) count JAK2 gene mutation COMPREHENSIVE METABOLIC PANEL Routine 05/18/2025 9:54 AM CDT Other specified abnormal findings of blood chemistry Other elevated white blood cell (WBC) count JAK2 gene mutation LACTATE DEHYDROGENASE Routine 05/18/2025 9:54 AM CDT Other specified abnormal findings of blood chemistry Other elevated white blood cell (WBC) count JAK2 gene mutation US VEIN DUPLEX LOWER EXTREMITY LEFT LIMITED Schedule Routine, Read Routine (OP Routine) 05/13/2025 8:33 AM CDT Other elevated white blood cell (WBC) count Other specified abnormal findings of blood chemistry JAK2 gene mutation Leg swelling CBC WITH AUTO DIFFERENTIAL Routine 05/11/2025 3:42 PM CDT Other elevated white blood cell (WBC) count Other specified abnormal findings of blood chemistry JAK2 gene mutation COMPREHENSIVE METABOLIC PANEL Routine 05/11/2025 3:42 PM CDT Other elevated white blood cell (WBC) count Other specified abnormal findings of blood chemistry JAK2 gene mutation COMPREHENSIVE METABOLIC PANEL Routine 05/05/2025 3:36 PM CDT Other specified abnormal findings of blood chemistry Other elevated white blood cell (WBC) count CBC WITH AUTO DIFFERENTIAL Routine 05/05/2025 3:36 PM CDT Other specified abnormal findings of blood chemistry Other elevated white blood cell (WBC) count COMPREHENSIVE METABOLIC PANEL Routine 04/29/2025 3:35 PM CDT Other specified abnormal findings of blood chemistry Other elevated white blood cell (WBC) count JAK2 gene mutation CBC WITH AUTO DIFFERENTIAL Routine 04/29/2025 3:35 PM CDT Other specified abnormal findings of blood chemistry Other elevated white blood cell (WBC) count JAK2 gene mutation SURGICAL PATHOLOGY Routine 04/26/2025 11 :00 AM CDT Other elevated white blood cell (WBC) count Polycythemia vera (HCC) Elevated hematocrit Elevated platelet count FLOW LEUKEMIA/LYMPHOMA Routine 04/26/2025 11:00 AM CDT Other elevated white blood cell (WBC) count JAK2 gene mutation MYELOSEQ HEME NGS PANEL WITH INTERPRETATION Routine 04/26/2025 10:57 AM CDT Other elevated white blood cell (WBC) count JAK2 gene mutation CYTOGENETICS Routine 04/26/2025 10:57 AM CDT Other elevated white blood cell (WBC) count JAK2 gene mutation DIFFERENTIAL AUTO Routine 04/26/2025 9:3 8 AM CDT Other specified abnormal findings of blood chemistry Other elevated white blood cell (WBC) count JAK2 gene mutation CBC WITH AUTO DIFFERENTIAL Routine 04/26/2025 9:38 AM CDT Other specified abnormal findings of blood chemistry Other elevated white blood cell (WBC) count JAK2 gene mutation ERYTHROPOIETIN Routine 04/15/2025 3:10 PM CDT Other elevated white blood cell (WBC) count Other specified abnormal findings of blood chemistry COMPREHENSIVE METABOLIC PANEL Routine 04/15/2025 3:10 PM CDT Other elevated white blood cell (WBC) count Other specified abnormal findings of blood chemistry CBC WITH AUTO DIFFERENTIAL Routine 04/15/2025 3:10 PM CDT Other elevated white blood cell (WBC) count Other specified abnormal findings of blood chemistry FERRITIN Routine 04/12/2025 10:31 AM CDT Other elevated white blood cell (WBC) count Other specified abnormal findings of blood chemistry IRON PROFILE W/ IBC Routine 04/12/2025 1 0:31 AM CDT Other elevated white blood cell (WBC) count Other specified abnormal findings of blood chemistry JAK2/CALR/MPL TESTING CASCADE Routine 04/12/2025 10:31 AM CDT Other elevated white blood cell (WBC) count Other specified abnormal findings of blood chemistry CYTOGENETICS TRACKING ORDER Routine 04/12/2025 10:31 AM CDT Other elevated white blood cell (WBC) count Other specified abnormal findings of blood chemistry SLIDE REVIEW - PATHOLOGIST Routine 04/12/2025 10:31 AM CDT Other elevated white blood cell (WBC) count Other specified abnormal findings of blood chemistry HEPATITIS PANEL, ACUTE Routine 04/12/2025 10:31 AM CDT Other elevated white blood cell (WBC) count Other specified abnormal findings of blood chemistry CYTOGENETICS Routine 04/12/2025 10:30 AM CDT Other elevated white blood cell (WBC) count Other specified abnormal findings of blood chemistry EGFR Routine 04/06/2025 11:22 AM CDT Other elevated white blood cell (WBC) count DIFFERENTIAL AUTO Routine 04/06/2025 11: 22 AM CDT Other elevated white blood cell (WBC) count CBC WITH AUTO DIFFERENTIAL Routine 04/06/2025 11:22 AM CDT Other elevated white blood cell (WBC) count COMPREHENSIVE METABOLIC PANEL Routine 04/06/2025 11:22 AM CDT Other elevated white blood cell (WBC) count ERYTHROCYTE SEDIMENTATION RATE Routine 04/06/2025 11:22 AM CDT Other elevated white blood cell (WBC) count CRP (ACUTE PHASE) Routine 04/06/2025 11: 22 AM CDT Other elevated white blood cell (WBC) count from Last 3 Months Results * (ABNORMAL) CBC with auto differential (06/01/2025 3:30 PM CDT) WBC 3.6 3.4 - 10.8 x10E3/uL [facility] - 01 RBC 4.30 3.77 - 5.28 x10E6/uL [facility] - 01 Hgb 11.3 11.1 - 15.9 g/dL [facility] - 01 Hct 36.4 34.0 - 46.6 % [facility] - 01 MCV 85 79 - 97 fL [facility] - 01 MCH 26.3(L) 26.6 - 33.0 pg [facility] - 01 MCHC 31.0(L) 31.5 - 35.7 g/dL [facility] - 01 Rdw 21.0(H) 11.7 - 15.4 % [facility] - 01 Platelets 273 150 - 450 x10E3/uL [facility] - 01 Neutrophils pct 44 Not Estab. % [facility] - 01 Lymphs pct 49 Not Estab. % [facility] - 01 Monocytes pct 5 Not Estab. % [facility] - 01 Eosinophils pct 1 Not Estab. % [facility] - 01 Basophil pct 1 Not Estab. % [facility] - 01 Neutrophil abs 1.6 1.4 - 7.0 x10E3/uL [facility] - 01 Lymphs (Absolute) 1.8 0.7 - 3.1 x10E3/uL [facility] - 01 Monocyte abs 0.2 0.1 - 0.9 x10E3/uL [facility] - 01 Eosinophils, abs 0.1 0.0 - 0.4 x10E3/uL [facility] - 01 Basophils, abs 0.1 0.0 - 0.2 x10E3/uL [facility] - 01 Immature Granulocytes 0 Not Estab. % [facility] - 01 Immature Grans (Abs) 0.0 0.0 - 0.1 x10E3/uL [facility] - 01 NRBC 1(H) 0 - 0 % [facility] - 01 Blood 06/01/2025 3:30 PM CDT 06/01/2025 Narrative [facility] - 06/02/2025 7:09 AM CDT Performed at: [address] [id number] Filenet Developer: Mcihael Singh PhD, Phone: [phone] us Chiara Colon MD LAB BLOOD ORDERABLES Angelica pappas Result [facility] - 01 * (ABNORMAL) Comprehensive metabolic panel (06/01/2025 3:30 PM CDT) [facility] Glucose 110(H) 70 - 99 mg/dL [facility] - 01 BUN 25 8 - 27 mg/dL [facility] - 01 Creatinine, Serum 0.70 0.57 - 1.00 mg/dL [facility] - 01 eGFR 92 >59 mL/min/1.7 3 [facility] - 01 BUN/creat ratio 36(H) 12 - 28 [facility] - 01 Sodium 138 134 - 144 mmol/L [facility] - 01 Potassium, sr 4.8 3.5 - 5.2 mmol/L [facility] - 01 Chloride 102 96 - 106 mmol/L [facility] - 01 CO2 23 20 - 29 mmol/L [facility] - 01 Calcium 8.9 8.7 - 10.3 mg/dL [facility] - 01 Protein, sr 6.3 6.0 - 8.5 g/dL [facility] - 01 Albumin 4.0 3.8 - 4.8 g/dL [facility] - 01 Globulin, Total 2.3 1.5 - 4.5 g/dL [facility] - 01 Bilirubin, Total 0.5 0.0 - 1.2 mg/dL [facility] - 01 Alk phos 74 44 - 121 IU/L [facility] - 01 AST 42(H) 0 - 40 IU/L [facility] - 01 ALT 53(H) 0 - 32 IU/L [facility] - 01 Blood 06/01/2025 3:30 PM CDT 06/01/2025 Narrative [facility] - 06/02/2025 8:11 AM CDT Performed at: [address] [place] [id number] Filen[employer] Developer: Michael Singh PhD, Phone: [phone] us Chiara Colon MD LAB BLOOD ORDERABLES Angelica l Result [facility] - 01 * eGFR (05/18/2025 9:54 AM CDT) [facility] eGFR 79 >=60 mL/min/1. 73 m2 Comment: Interpretive Data Reference Interval Normal >/= 90 mL/min/1.73m2 Mildly decreased* 60 - 89 mL/min/1.73m2 Mildly to moderately decreased 45 - 59 mL/min/1.73m2 Moderately to severely decreased 30 - 44 mL/min/1.73m2 Severely decreased 15 - 29 mL/min/1.73m2 Kidney Failure < 15 mL/min/1.73m2 *Relative to young adult level Estimated glomerular filtration rate is determined by the 2020 CKD-EPI equation recommended by the National Kid[employer] (A Unifying Approach to GFR Estimation: Recommendations of the NKF-ASK Task Force on Reassessing the Inclusion of Race in Diagnosing Kidney Disease, JASN 2020). The CKD-EPI equation should not be used for patients with unstable renal function and has not been validated in children and those over 70. Current interpretive data was last reviewed 2021. Testing performed by: [address] [address] Blood 05/18/2025 9:54 AM CDT 05/18/2025 9:59 AM CDT us Chiara Colon MD LAB BLOOD ORDERABLES Angelica l Result [facility] [address] [facility] Department of Laboratories [place] [id number] * (ABNORMAL) Differential, auto (05/18/2025 9:54 AM CDT) Neutrophil abs 1.65 1.50 - 6.50 K/cumm Comment:Testing performed by : [address] [address] Imm gran abs 0.01 0.00 - 0.10 K/cumm [facility] Comment:Testing performed by : [address] [address] Lymphocyte abs 1.56 0.80 - 3.30 K/cumm [facility] Comment:Testing performed by : [address] [address] Monocyte abs 0.18(L) 0.20 - 0.80 K/cumm [facility] Comment:Testing performed by : [address] [address] Eosinophil abs 0.05 0.00 - 0.50 K/cumm [facility] Comment:Testing performed by : [address] [address] Basophil abs 0.09 0.00 - 0.10 K/cumm [facility] Comment:Testing performed by : [address] [address] Neutrophil pct 46.6 % [facility] Comment: Interpretive Data Percent cell count reference ranges are not reported, since discordance with absolute values may lead to misinterpretation of CBC data. Current Interpretive Data was last revised on 2018. Testing performed by: [address] [address] Imm gran pct 0.3 % [facility] Comment: Interpretive Data Percent cell count reference ranges are not reported, since discordance with absolute values may lead to misinterpretation of CBC data. Current Interpretive Data was last revised on 2018. Testing performed by: [address] [address] Lymphocyte pct 44.1 % [facility] Comment: Interpretive Data Percent cell count reference ranges are not reported, since discordance with absolute values may lead to misinterpretation of CBC data. Current Interpretive Data was last revised on 2018. Testing performed by: [address] [address] Monocyte pct 5.1 % [facility] Comment: Interpretive Data Percent cell count reference ranges are not reported, since discordance with absolute values may lead to misinterpretation of CBC data. Current Interpretive Data was last revised on 2018. Testing performed by: [address] [address] Eosinophil pct 1.4 % [facility] Comment: Interpretive Data Percent cell count reference ranges are not reported, since discordance with absolute values may lead to misinterpretation of CBC data. Current Interpretive Data was last revised on 2018. Testing performed by: [address] [address] Basophil pct 2.5 % [facility] Comment: Interpretive Data Percent cell count reference ranges are not reported, since discordance with absolute values may lead to misinterpretation of CBC data. Current Interpretive Data was last revised on 2018. Testing performed by: [address] [address] Blood 05/18/2025 9:54 AM CDT 05/18/2025 9:59 AM CDT us Chiara Colon MD LAB BLOOD ORDERABLES Angelica l Result [facility] [address] [facility] Department [place] [address] * (ABNORMAL) CBC with auto differential (05/18/2025 9:54 AM CDT) WBC 3.54(L) 3.80 - 9.90 K/cumm Comment:Testing performed by : [address] [address] Hgb 14.3 11.9 - 15.5 g/dL [facility] Comment:Testing performed by : [address] [address] Hct 45.3 35.6 - 45.5 % [facility] Comment:Testing performed by : [address] [address] Plt 189 150 - 400 K/cumm [facility]STAL Comment:Testing performed by : [address] [address] MPV 9.0(L) 9.1 - 12.3 fL [facility] Comment:Testing performed by : [address] [address] RBC 5.68(H) 3.90 - 5.20 M/cumm [facility]AL Comment:Testing performed by : [address] [address] MCV 79.8(L) 81.3 - 96.4 fL [facility] Comment:Testing performed by : [address] [address] MCH 25.2(L) 27.1 - 33.3 pg [facility] Comment:Testing performed by : [address] [address] MCHC 31.6(L) 32.3 - 35.7 g/dL [facility] NESS Comment:Testing performed by : [address] [address] RDW CV 22.0(H) 11.1 - 14.9 % [facility] Comment:Testing performed by : [address] [address] RDW SD 47.5 35.7 - 48.1 fL [facility] Comment:Testing performed by : [address] [address] NRBC abs 0.00 0.00 - 0.01 K/cumm [facility]AL Comment:Testing performed by : [address] [address] ANC Prelim 1.65 1.50 - 6.50 K/cumm [facility] Comment: Interpretive Data The rapid ANC is a preliminary automated count and may vary from the final ANC (Neut Abs) reported in the WBC differential that follows. Current interpretive data was last revised 2025. Testing performed by: [address] [address] Blood 05/18/2025 9:54 AM CDT 05/18/2025 9:59 AM CDT Chiara Colon MD LAB BLOOD ORDERABLES Angelica l Result Performing Organization Address City/[facility] Co de Phone Number [facility] [address] [facility] Department [place] [address] * Lactate dehydrogenase (LD) (05/18/2025 9:54 AM CDT) Lactate dehydrogenase (LDH) 246 100 - 250 Units/L Comment:Testing performed by : [address] [address] Blood 05/18/2025 9:54 AM CDT 05/18/2025 9:59 AM CDT Chiara Colon MD LAB BLOOD ORDERABLES Angelica l Result [facility] [address] [facility] Department [place] [address] * (ABNORMAL) Comprehensive metabolic panel (05/18/2025 9:54 AM CDT) Sodium 140 135 - 145 mmol/L Comment:Testing performed by : [address] [address] Potassium, pl 4.1 3.3 - 4.9 mmol/L [facility] Comment:Testing performed by : [address], [place]., [address] Chloride 104 97 - 110 mmol/L KRISTAL Comment:Testing performed by : [address] [address] CO2 27 22 - 32 mmol/L KRISTAL Comment:Testing performed by : [address] [address] Anion gap 9 2 - 15 mmol/L KRISTAL Comment:Testing performed by : [address] [address] BUN 20 6 - 25 mg/dL KRISTAL Comment:Testing performed by : [address] [address] Creatinine 0.80 0.60 - 1.10 mg/dL KRISTAL Comment:Testing performed by : [address] [address] Glucose 64(L) 70 - 199 mg/dL [facility] Comment: Interpretive Data Fasting glucose >/= 126 mg/dl is diagnostic for diabetes. Fasting is defined as no caloric intake for at least 8 hours. Fasting glucose between 100 mg/dl to 125 mg/dl is diagnostic of prediabetes. In a patient with classic symptoms of hyperglycemia or hyperglycemic crisis, a random glucose >/= 200 mg/dl is diagnostic for diabetes. In the absence of unequivocal hyperglycemia, results should be confirmed by repeat testing. The classification and Diagnosis of Diabetes Diabetes Care 202; 46: S19-S40. Current interpretive data was last revised 2022. Testing performed by: [address] [address] Calcium 9.3 8.5 - 10.3 mg/dL KRISTAL Comment:Testing performed by : [address] [address] Bilirubin, total 0.8 0.1 - 1.2 mg/dL KRISTAL Comment:Testing performed by : [address] [address] Protein, pl 7.3 6.5 - 8.5 g/dL KRISTAL Comment:Testing performed by : [address] [address] Albumin 4.4 3.5 - 5.0 g/dL KRISTAL Comment:Testing performed by : [address] [address] Alk phos 88 40 - 130 Units/L KRISTAL Comment:Testing performed by : [address] [address] ALT 42 7 - 45 Units/L KRISTAL Comment:Testing performed by : [address] [address] AST 46(H) 10 - 45 Units/L KRISTAL Comment:Testing performed by : [address] [address] Blood 05/18/2025 9:54 AM CDT 05/18/2025 9:59 AM CDT Chiara Colon MD LAB BLOOD ORDERABLES Angelica l Result Performing Organization Address City/State/[facility] Co de Phone Number [facility] [address] [facility] Department [place] [address] * US VEIN DUPLEX LOWER EXTREMITY LEFT LIMITED, UNILATERAL (05/13/2025 8:33 AM CDT) Anatomical Region Laterality Modality Vascular Left Ultrasound 05/13/2025 8:00 AM CDT Narrative 05/14/2025 8:39 AM CDT Lower Extremity Venous Report Patient Name: BUSHRAXAVIER B : 1955 (69y 5m) Gender: F Study Date: 05/13/2025 08:00:04 AM [employer] Manager: SUNG Figueroa Provider: LELA JOHNSON Quality: Adequate Ref Provider: LELA JOHNSON PROCEDURES: Vascular Report: A non-invasive vascular imaging study of the left lower extremity veins was performed using B-mode ultrasound, color flow, and spectral Doppler. INDICATIONS: D72.828 Other elevated white blood cell count, R79.89 Other specified abnormal findings of blood chemistry, Z15.89 Genetic susceptibility to other disease, and M79.89 Other specified soft tissue disorders. HISTORY: CA. COMPARISONS: No prior exams. FINDINGS: Left: Negative for deep vein thrombosis in the left lower extremity. Normal compressibility and color filling, spontaneous and phasic flow, and response to distal augmentation is demonstrated in the left common femoral vein, saphenofemoral junction, proximal femoral vein, mid femoral vein, distal femoral vein, profunda vein, popliteal vein, posterior tibial veins and peroneal veins. Positive for acute superficial vein thrombosis in the left lower extremity. Superficial veins involved include the left varicose vein (Branch from GSV at mid anterior calf). For comparisons purposes, the right common femoral vein was interrogated. The common femoral vein Doppler flow was phasic, spontaneous and responded normally to distal augmentation. Provider Notification: Lela Johnson NP. via Today Tix. CONCLUSIONS: 1. There is no evidence of deep vein thrombosis in the left lower extremity. 2. Positive for acute superficial vein thrombosis in the left lower extremity. Superficial veins involved include the left varicose vein (Branch from GSV at mid anterior calf). ATTESTATION: I have reviewed and interpreted the pertinent images and measurements of this study. I attest to the conclusions in the final report that is provided above. Electronically Signed By: David Souza MD 05/14/2025 7:27:32 AM CDT Procedure Note David Souza MD - 05/14/2025 Lower Extremity Venous Report Patient Name: XAVIER TOMLINSON B : 1955 (69y 5m) Gender: F Study Date: 05/13/2025 08:00:04 AM [employer] Manager: SUNG Figueroa Order Provider: LELA JOHNSON Quality: Adequate Ref Provider: LELA JOHNSON PROCEDURES: Vascular Report: A non-invasive vascular imaging study of the left lowerextremity veins was performed using B-mode ultrasound, color flow, and spectral Doppler. INDICATIONS: D72.828 Other elevated white blood cell count, R79.89 Other specifiedabnormal findings of blood chemistry, Z15.89 Genetic susceptibility to other disease, andM79.89 Other specified soft tissue disorders. HISTORY: CA. COMPARISONS: No prior exams. FINDINGS: Left: Negative for deep vein thrombosis in the left lower extremity.Normal compressibility and color filling, spontaneous and phasic flow, andresponse to distal augmentation is demonstrated in the left common femoral vein,saphenofemoral junction, proximal femoral vein, mid femoral vein, distal femoral vein, profundavein, popliteal vein, posterior tibial veins and peroneal veins. Positive for acutesuperficial vein thrombosis in the left lower extremity. Superficial veins involved includethe left varicose vein (Branch from GSV at mid anterior calf). For comparisonspurposes, the right common femoral vein was interrogated. The common femoral vein Doppler flowwas phasic, spontaneous and responded normally to distal augmentation. Provider Notification: Lela Johnson NP. via Today T[employer]. CONCLUSIONS: 1. There is no evidence of deep vein thrombosis in the left lowerextremity. 2. Positive for acute superficial vein thrombosis in the left lowerextremity. Superficial veins involved include the left varicose vein (Branch from GSVat mid anterior calf). ATTESTATION: I have reviewed and interpreted the pertinent images and measurements ofthis study. I attest to the conclusions in the final report that is provided above. Electronically Signed By: David Souza MD 05/14/2025 7:27:32 AM CDT us Lela Johnson NP [facility]ED[place] Final Result * (ABNORMAL) CBC with auto differential (05/11/2025 3:42 PM CDT) WBC 7.1 3.4 - 10.8 x10E3/uL [facility] - 01 RBC 5.62(H) 3.77 - 5.28 x10E6/uL [facility] - 01 Hgb 14.2 11.1 - 15.9 g/dL [facility] - 01 Hct 47.4(H) 34.0 - 46.6 % [facility] - 01 MCV 84 79 - 97 fL [facility] - 01 MCH 25.3(L) 26.6 - 33.0 pg [facility] - 01 MCHC 30.0(L) 31.5 - 35.7 g/dL [facility] - 01 Rdw 19.0(H) 11.7 - 15.4 % [facility] - 01 Platelets 391 150 - 450 x10E3/uL [facility] - 01 Neutrophils pct 64 Not Estab. % [facility] - 01 Lymphs pct 27 Not Estab. % [facility] - 01 Monocytes pct 5 Not Estab. % [facility] - 01 Eosinophils pct 2 Not Estab. % [facility] - 01 Basophil pct 2 Not Estab. % [facility] - 01 Neutrophil abs 4.6 1.4 - 7.0 x10E3/uL [facility] - 01 Lymphs (Absolute) 1.9 0.7 - 3.1 x10E3/uL [facility] - 01 Monocyte abs 0.3 0.1 - 0.9 x10E3/uL [facility] - 01 Eosinophils, abs 0.1 0.0 - 0.4 x10E3/uL [facility] - 01 Basophils, abs 0.1 0.0 - 0.2 x10E3/uL [facility] - 01 Immature Granulocytes 0 Not Estab. % [facility] - 01 Immature Grans (Abs) 0.0 0.0 - 0.1 x10E3/uL [facility] - 01 Blood 05/11/2025 3:42 PM CDT 05/11/2025 Narrative [facility] - 05/12/2025 7:09 AM CDT Performed at: [address] [place] [id number] Filenet Developer: Michael Singh PhD, Phone: [phone] Chiara Colon MD LAB BLOOD ORDERABLES Angelica pappas Result [facility] * (ABNORMAL) Comprehensive metabolic panel (05/11/2025 3:42 PM CDT) [facility] Glucose 80 70 - 99 mg/dL [facility] - 01 BUN 22 8 - 27 mg/dL [facility] - 01 Creatinine, Serum 0.75 0.57 - 1.00 mg/dL [facility] - 01 eGFR 85 >59 mL/min/1.73 [facility] - 01 BUN/creat ratio 29(H) 12 - 28 [facility] - 01 Sodium 138 134 - 144 mmol/L [facility] - 01 Potassium, sr 5.0 3.5 - 5.2 mmol/L [facility] - 01 Chloride 101 96 - 106 mmol/L [facility] - 01 CO2 22 20 - 29 mmol/L [facility] - 01 Calcium 9.2 8.7 - 10.3 mg/dL [facility] - 01 Protein, sr 6.7 6.0 - 8.5 g/dL [facility] - 01 Albumin 4.2 3.8 - 4.8 g/dL [facility] - 01 Globulin, Total 2.5 1.5 - 4.5 g/dL [facility] - 01 Bilirubin, Total 0.6 0.0 - 1.2 mg/dL [facility] - 01 Alk phos 89 44 - 121 IU/L [facility] - 01 AST 31 0 - 40 IU/L [facility] - 01 ALT 28 0 - 32 IU/L [facility] - 01 Blood 05/11/2025 3:42 PM CDT 05/11/2025 Narrative [facility] - 05/12/2025 9:10 AM CDT Performed at: [address] [place] [id number] Filenet Developer: Michael Singh PhD, Phone: [phone] Chiara Colon MD LAB BLOOD ORDERABLES Angelica l Result [facility] - 01 * (ABNORMAL) CBC with auto differential (05/05/2025 3:36 PM CDT) Pathologist [facility] WBC 10.6 3.4 - 10.8 x10E3/uL [facility] - 01 RBC 5.84(H) 3.77 - 5.28 x10E6/uL [facility] - 01 Hgb 14.3 11.1 - 15.9 g/dL [facility] - 01 Hct 47.9(H) 34.0 - 46.6 % [facility] - 01 MCV 82 79 - 97 fL [facility] - 01 MCH 24.5(L) 26.6 - 33.0 pg [facility] - 01 MCHC 29.9(L) 31.5 - 35.7 g/dL [facility] - 01 Rdw 16.7(H) 11.7 - 15.4 % [facility] - 01 Platelets 641(H) 150 - 450 x10E3/uL [facility] - 01 Neutrophils pct 81 Not Estab. % [facility] - 01 Lymphs pct 14 Not Estab. % [facility] - 01 Monocytes pct 2 Not Estab. % [facility] - 01 Eosinophils pct 2 Not Estab. % [facility] - 01 Basophil pct 1 Not Estab. % [facility] - 01 Neutrophil abs 8.6(H) 1.4 - 7.0 x10E3/uL [facility] - 01 Lymphs (Absolute) 1.4 0.7 - 3.1 x10E3/uL [facility] - 01 Monocyte abs 0.3 0.1 - 0.9 x10E3/uL [facility] - 01 Eosinophils, abs 0.2 0.0 - 0.4 x10E3/uL [facility] - 01 Basophils, abs 0.1 0.0 - 0.2 x10E3/uL [facility] - 01 Immature Granulocytes 0 Not Estab. % [facility] - 01 Immature Grans (Abs) 0.0 0.0 - 0.1 x10E3/uL [facility] - 01 Blood 05/05/2025 3:36 PM CDT 05/05/2025 Narrative [facility] - 05/06/2025 7:09 AM CDT Performed at: - [address] [id number] Filenet Developer: Michael Singh PhD, Phone: [phone] Chiara Colon MD LAB BLOOD ORDERABLES Angelica l Result [facility] * Comprehensive metabolic panel (05/05/2025 3:36 PM CDT) [facility] Glucose 93 70 - 99 mg/dL [facility] - 01 BUN 26 8 - 27 mg/dL [facility] - 01 Creatinine, Serum 0.99 0.57 - 1.00 mg/dL [facility] - 01 eGFR 61 >59 mL/min/1.73 [facility] - 01 BUN/creat ratio 26 12 - 28 [facility] - 01 Sodium 134 134 - 144 mmol/L [facility] - 01 Potassium, sr 5.2 3.5 - 5.2 mmol/L [facility] - 01 Chloride 99 96 - 106 mmol/L [facility] - 01 CO2 20 20 - 29 mmol/L [facility] - 01 Calcium 8.7 8.7 - 10.3 mg/dL [facility] - 01 Protein, sr 6.4 6.0 - 8.5 g/dL [facility] - 01 Albumin 4.2 3.8 - 4.8 g/dL [facility] - 01 Globulin, Total 2.2 1.5 - 4.5 g/dL [facility] - 01 Bilirubin, Total 0.9 0.0 - 1.2 mg/dL [facility] - 01 Alk phos 95 44 - 121 IU/L [facility] - 01 AST 27 0 - 40 IU/L [facility] - 01 ALT 24 0 - 32 IU/L [facility] - 01 Blood 05/05/2025 3:36 PM CDT 05/05/2025 Narrative [facility] - 05/06/2025 8:11 AM CDT Performed at: [address] [place] [id number] Filenet Developer: Michael Singh PhD, Phone: [phone] us Chiara Colon MD LAB BLOOD ORDERABLES Angelica l Result [facility] 01 * (ABNORMAL) CBC with auto differential (04/29/2025 3:35 PM CDT) [facility] WBC 11.1(H) 3.4 - 10.8 x10E3/uL [facility] - 01 RBC 5.69(H) 3.77 - 5.28 x10E6/uL [facility] - 01 Hgb 13.9 11.1 - 15.9 g/dL [facility] - 01 Hct 46.8(H) 34.0 - 46.6 % [facility] - 01 MCV 82 79 - 97 fL [facility] - 01 MCH 24.4(L) 26.6 - 33.0 pg [facility] - 01 MCHC 29.7(L) 31.5 - 35.7 g/dL [facility] - 01 Rdw 16.0(H) 11.7 - 15.4 % [facility] - 01 Platelets 612(H) 150 - 450 x10E3/uL [facility] - 01 Neutrophils pct 68 Not Estab. % [facility] - 01 Lymphs pct 21 Not Estab. % [facility] - 01 Monocytes pct 5 Not Estab. % [facility] - 01 Eosinophils pct 3 Not Estab. % [facility] - 01 Basophil pct 2 Not Estab. % [facility] - 01 Neutrophil abs 7.6(H) 1.4 - 7.0 x10E3/uL [facility] - 01 Lymphs (Absolute) 2.4 0.7 - 3.1 x10E3/uL [facility] - 01 Monocyte abs 0.6 0.1 - 0.9 x10E3/uL [facility] - 01 Eosinophils, abs 0.3 0.0 - 0.4 x10E3/uL [facility] - 01 Basophils, abs 0.2 0.0 - 0.2 x10E3/uL [facility] - 01 Immature Granulocytes 1 Not Estab. % [facility] - 01 Immature Grans (Abs) 0.1 0.0 - 0.1 x10E3/uL [facility] - 01 Blood 04/29/2025 3:35 PM CDT 04/29/2025 Narrative [facility] - 04/30/2025 7:09 AM CDT Performed at: [place] [id number] Filenet Developer: Michael Singh PhD, Phone: [phone] us Chiara Colon MD LAB BLOOD ORDERABLES Angelica l Result [facility] * (ABNORMAL) Comprehensive metabolic panel (04/29/2025 3:35 PM CDT) [facility] Glucose 89 70 - 99 mg/dL [facility] - 01 BUN 34(H) 8 - 27 mg/dL [facility] - 01 Creatinine, Serum 1.07(H) 0.57 - 1.00 mg/dL [facility] - 01 eGFR 56(L) >59 mL/min/1.7 3 [facility] - 01 BUN/creat ratio 32(H) 12 - 28 [facility] - 01 Sodium 141 134 - 144 mmol/L [facility] - 01 Potassium, sr 5.1 3.5 - 5.2 mmol/L [facility] - 01 Chloride 105 96 - 106 mmol/L [facility] - 01 CO2 22 20 - 29 mmol/L [facility] - 01 Calcium 9.5 8.7 - 10.3 mg/dL [facility] - 01 Protein, sr 6.7 6.0 - 8.5 g/dL [facility] - 01 Albumin 4.2 3.8 - 4.8 g/dL [facility] - 01 Globulin, Total 2.5 1.5 - 4.5 g/dL [facility] - 01 Bilirubin, Total 0.6 0.0 - 1.2 mg/dL [facility] - 01 Alk phos 103 44 - 121 IU/L [facility] - 01 AST 28 0 - 40 IU/L [facility] - 01 ALT 20 0 - 32 IU/L [facility] - 01 Blood 04/29/2025 3:35 PM CDT 04/29/2025 Narrative [facility] - 04/30/2025 8:11 AM CDT Performed at: - [facility] [id number] Filenet Developer: Michael Singh PhD, Phone: [phone] Chiara Colon MD LAB BLOOD ORDERABLES Angelica l Result Performing Organization Address City/[facility]/ZIP Co de Phone Number [facility] - 01 * Flow Leukemia/Lymphoma Bone marrow (04/26/2025 11:00 AM CDT) Cote Stain Test Completed Leukemia/Lymp wendi Result See separate Surgical Pathology report. [facility] Bone marrow 04/26/2025 11:0 0 AM CDT 04/26/2025 7:32 PM CDT Narrative [facility] - 04/27/2025 11:12 AM CDT Tube information: Green top (Sodium Heparin) Chiara Colon MD LAB PATHOLOGY ORDERABLES Final Result [facility] [place] [address] * Surgical pathology (04/26/2025 11:00 AM CDT) Bone marrow (Bone Marrow Biopsy) 04/26/2025 11:00 AM CDT 04/26/2025 3:54 PM CDT Narrative PATHOLOGY [facility] - 04/29/2025 4:48 PM CDT EPIC results best viewed via link to PDF [facility] Karina Parikh [facility] [place] [address] Note to Patients: This report may contain a detailed description of human tissue sent by a health care provider to the laboratory for pathologic evaluation. The content of this report is essential for diagnosis and may provide important critical findings. This information may be unfamiliar to patients to review without a medical professional present. It is advised that the patient review this report in the presence of a health care provider who can answer questions and explain the details. 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 Bertram Liriano M.D. Report Electronically Reviewed and Signed Out By Bertram Liriano M.D. 04/29/2025 16:48:47 Diagnosis Comment The bone marrow aspirate and core biopsy are hypercellular for age with megakarocytic hyperplasia and dysplasia (clustered and abnormally lobated forms). The myeloid and erythroid lineages show no significant abnormality. There is no increase in blasts or marrow fibrosis. 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 The overall findings are consistent with involvement by a myeloproliferative neoplasm. Correlation with clinical data, imaging studies and additional molecular testing for CALR and MPL is recommended for further characterization. For details on the peripheral blood smear (if submitted), bone marrow aspirate, and core biopsy, please see the attached synoptic report. If applicable, correlation with concurrent flow cytometry (Addenda/Procedures below), cytogenetics/FISH, and molecular studies is suggested for full evaluation. Microscopic Description and Comment: Microscopic examination substantiates the above cited diagnosis. History: The patient is a 69-year-old female referred for evaluation of leukocytosis and thrombocytosis with no obvious etiology. Operative procedure: Bone marrow biopsy. Specimen(s) Received: A: Bone marrow biopsy, left posterior iliac crest B: Bone Marrow Clot - BJ C: Bone marrow, left aspirate for flow cytometry Gross Description: Received in two formalin jars labeled with the patient's identifiers. A. Received in formalin, labeled left core and consists of two brown cores of bone with attached hemorrhagic material measuring 0.5 and 0.7 cm each in length by 0.2 cm in diameter. Labeled A1. EDTA decalcification.. Jar 0. B. Received in formalin, labeled left clot and consists of a 2.2 x 2.2 x 0.8 cm fragment of hemorrhagic material. Labeled B1. Jar 0. sxst/04/26/2025 17:22 PA(s): Candy Lizama CBC: Date: 04/26/25 WBCs: 11.67x10^3/mcl Hemoglobin: 14.8g/dl Hematocrit: 47.6% Platelets: 657x10^3/mcl Mean corpuscular volume (MCV): 76.8fl Red cell distribution width (RDW-CV): 18.9% Neutrophils, absolute: 8.85 K/cumm Lymphocytes, absolute: 1.75 K/cumm Monocytes, absolute: 0.55 K/cumm Eosinophils, absolute: 0.23 K/cumm Basophils, absolute: 0.23 K/cumm Neutrophils: 75.8% Lymphocytes: 15.0% Monocytes: 4.7% Eosinophils: 2.0% Basophils: 2.0% Peripheral blood smear (Cote-Giemsa): The peripheral blood morphology reflects the CBC values. Bone marrow aspirate smear (Cote-Giemsa stain): Quality: Adequate Spicules: Present Marrow cellularity: Increased Myeloid maturation: Normal Erythroid maturation: Normal Myeloid/Erythroid Ratio: Within normal limits Megakaryocyte number: Increased Megakaryocytic maturation: Abnormal lobation Lymphocytes: Normal Plasma cells: Normal Iron: Aspicular aspirate insufficient for interpretation/non-contributory Differential count: Total # of Cells Counted:200 Blasts: 1 Promyelocytes: 1 Myelocytes+Metamyelocytes:34 Bands+Neutrophils:18 Eosinophils: 1 Plasma cells: 2 Lymphocytes: 8 Monocytes: 3 Erythroids: 32 Bone marrow core biopsy (decalcified, H&E and Leder stains): Left, iliac crest Quality: Adequate, Subcortical Cellularity: 70% Myeloid maturation: Normal Erythroid maturation: Normal The Leder stain shows that the Myeloid/Erythroid Ratio is: Within normal limits Megakaryocyte number: Increased Megakaryocytic maturation: Abnormal lobation The Leder stain is used to assess for lymphoid aggregates: None Plasma cells: Normal Reticulin and Trichrome stains show: No significant fibrosis (MF-0) CLOT SECTION: The bone marrow clot section including Leder and H&E stains are: Similiar in cellularity and composition to the bone marrow core By this signature, I attest that the above diagnosis is based upon my personal examination of the slides(and/or other material). Addenda/Procedures Flow Cytometry Ordered:04/26/2025Status:Signed OutFlow Cytometry Complete:04/27/2025y:Bertram Liriano M.D.Flow Cytometry Signed Out: 04/27/2025 Diagnosis Bone marrow, left posterior iliac crest, aspirate for flow cytometry - No significant blast, clonal B-cell or aberrant T-cell population identified - See comment Comment Specimen Quality: Adequate Correlation with concurrent bone marrow biopsy and aspirate findings is needed for full evaluation. A malignant process cannot be excluded solely on the basis of this assay. Flow cytometric analysis shows that CD45 dim-gated events are 3% of overall cellularity of the specimen, with a small subset of this population positive for CD34 and CD117. CD34+ blasts are not increased. Monocyte-gated events are 2% of overall cellularity and express CD13, CD33, CD64, and CD14. Lymphocyte-gated events account for 13% of the overall cellularity and include a small polytypic SK75-baptnlgr TB45-jfdfmbko B-cell population (21% of lymphocytes) with no significant co-expression of CD5 or CD10. CD3-positive T-cells (comprising 58% of lymphocytes) show no significant loss of joseph T-cell antigens and have a CD4 to CD8 ratio within normal limits. There is an expanded population of IO23-bgiaxesv cells (18% of lymphocytes) consistent with natural killer cells. A Cote-Giemsa stained cytospin from the flow cytometry specimen was examined for internal quality systems technician purposes. Flow cytometry was performed using antibodies to the following cellular antigens: CD45, CD34, CD19, CD20, Alsip, Lambda, CD10, CD5, CD200, CD38, CD2, CD3, CD4, CD7, CD8, CD56, TCR-GD, CD16, CD13, CD14, CD64, HLA-DR, CD11b, CD15, CD123, CD117, CD33. Total antigens analyzed: 27 (juac 04/27/25) By this signature, I attest that the above diagnosis is based upon my personal examination of the slides(and/or other material indicated in the diagnosis). Bertram Liriano M.D.Report Electronically Reviewed and Signed Out By Bertram Liriano M.D. 04/27/2025 16:09:38 The performance characteristics of some immunohistochemical stains, fluorescence in-situ hybridization tests and immunophenotyping by flow cytometry cited in this report (if any) were determined by the Surgical Pathology and Flow Cytometry Departments at [facility] as part of an ongoing chief vendor quality program and in compliance with federally mandated regulations drawn from the Clinical Laboratory Improvement Act of 1988 (CLIA '88). Some of these tests rely on the use of analyte specific reagents and are subject to specific labeling requirements by the US Food and Drug Administration. Such diagnostic tests may only be performed in a facility that is certified by the Department of Health and Human Services as a high complexity laboratory under CLIA '88. The FDA has determined that such clearance or approval is not necessary. This test is used for clinical purposes. It should not be regarded as investigational or for research. Nevertheless, federal rules concerning the medical use of analyte specific reagents require that the following disclaimer be attached to the report: This test was developed and its performance characteristics determined by the Surgical Pathology and Flow Cytometry Departments of [facility]. It has not been cleared or approved by the U. S. Food and Drug Administration. IMAGES AND SCANNED DOCUMENTS, IF INCLUDED, ONLY VIEWABLE IN PDF VERSION OF REPORT us Belén Campbell [facility] PATH[facility] ORDERA BLES Final Result [facility] 3rd Floor [place], [place] [phone] * Cytogenetics Bone marrow (04/26/2025 10:57 AM CDT) Bone marrow (Bone Marrow Biopsy) 04/26/2025 10:57 AM CDT 04/26/2025 10:57 AM CDT Narrative [facility] - CYTOGENETICS - 05/11/2025 4:44 PM CDT [facility] results best viewed via link to PDF [facility] Department of Pathol [address] [place] [id number] Patient Information Name: XAVIER TOMLINSON Gender: F : 1955 (Age: 69) Tissue: Bone Marrow w/ FISH Visit Information Hospital #: [id number] Facility: [facility] Service: [facility] Location: UNKNOWN Patient Type: [facility] Specimen Information: Culture #: [id number] Date Collected: 04/26/2025 Date Accessioned: 04/27/2025 Date Ordered: 04/26/2025 Physician(s): Chiara Colon MD Processin hours unstimulated Indication: Leukocytosis Specimen Quality: Low cell count Adequate: FISH Adequate: Chromosome analysis CLINICAL REPORT CHROMOSOME ANALYSIS Metaphases Counted: 20Banding Technique: GTWColonies Counted: Metaphases Analyzed: 20Additional Method: FISHNumber of Cultures: 1Metaphases Karyotyped: 4Banding Resolution: 400Subculture: Karyotype: 46,XX[20].nuc rafat (SCFD2,LNX1,PDGFRA)x2[200],(PDGFRB)x2[200],(FGFR1)x2[200],(ASS1,ABL1,BCR)x2[200] Diagnosis: CHROMOSOME ANALYSIS: NO EVIDENCE OF CLONAL ABERRATIONS FISH FINDINGS: NO EVIDENCE OF FIP1L1::PDGFRA FUSION; NO EVIDENCE OF PDGFRB (5q), FGFR1 (8p) OR BCR::ABL1 REARRANGEMENT INTERPRETATION: No clonal cytogenetic aberrations were identified in metaphase cells analyzed from an unstimulated culture. This normal result does not exclude a neoplastic proliferation. Small chromosome anomalies may not be detectable using the standard methods employed. Chromosome analysis was performed at a level of 400 bands or greater. These findings must be interpreted within the context of the pathologic and clinical findings. Follow-up evaluation is recommended. Chromosome analysis and Fluorescence In Situ Hybridization (FISH) analysis are performed using the [employer] Cytovision Imaging System. Report Electronically Reviewed and Signed Out By Sofía Carver MD, [facility], FAAPDate Reported: 05/11/2025Professor, Division of Genomic & Molecular Pathology FLUORESCENCE IN-SITU HYBRIDIZATION [FISH] Karyotype: nuc rafat (SCFD2,LNX1,PDGFRA)x2[200],(PDGFRB)x2[200],(FGFR1)x2[200],(ASS1,ABL1,BCR)x2[200] Diagnosis: FISH FINDINGS: NO EVIDENCE OF FIP1L1::PDGFRA FUSION; NO EVIDENCE OF PDGFRB (5q), FGFR1 (8p) OR BCR::ABL1 REARRANGEMENT INTERPRETATION: FISH analysis was performed with a panel of probes for MPN and is interpreted as NORMAL. 1) FISH evaluation for a FIP1L1::PDGFRA fusion was performed on nuclei with the LSI 4q12 Tricolor Rearrangement Probe ([employer] that consists of three probes (SCFD2, LNX1 and PDGFRA) on chromosome band 4q12. In this assay, a FIP1L1::PDGFRA fusion is indicated by an isolated deletion of LNX1 with retention of the flanking SCFD2 and PDGFRA probes. In the present case, the assay shows NO EVIDENCE OF A FIP1L1::PDGFRA fusion. Two LNX1 hybridization signals were observed in 200/200 nuclei, which is within the normal range established for this probe in the Clinical Genomics Laboratory at [facility]. Up to 1% of cells in normal samples can show a random FIP1L1::PDGFRA fusion using this probe. A normal FIP1L1::PDGFRA FISH finding can result from the absence of a FIP1L1::PDGFRA fusion, from a variant FIP1L1::PDGFRA fusion not involving a LNX1 deletion or from an insufficient number of neoplastic cells in the specimen. 2) FISH evaluation for a PDGFRB rearrangement was performed on nuclei with the LSI PDGFRB Dual Color, Break Apart Rearrangement Probe ([employer] at 6w20-21 and is interpreted as NORMAL. No rearrangement was observed in 200/200 nuclei, which is within the normal range established for this probe in the Clinical Genomics Laboratory at [facility]. Up to 1% of cells in normal samples can show an apparent PDGFRB rearrangement using this probe. A normal PDGFRB FISH finding can result from the absence of a PDGFRB rearrangement, from a variant PDGFRB rearrangement or from an insufficient number of neoplastic cells in the specimen. 3) FISH evaluation for a FGFR1 rearrangement was performed on nuclei with the LSI FGFR1 Dual Color, Break Apart Rearrangement Probe ([employer] at 8p11.2 and is interpreted as NORMAL. No rearrangement was observed in 197/200 nuclei, which is within the normal range established for this probe in the Clinical Genomics Laboratory at [facility]. Up to 1% of cells in normal samples can show an apparent FGFR1 rearrangement using this probe. A normal FGFR1 FISH finding can result from the absence of a FGFR1 rearrangement, from a variant FGFR1 rearrangement or from an insufficient number of neoplastic cells in the specimen. 4) FISH evaluation for a BCR::ABL1 rearrangement was performed on nuclei with the LSI BCR/ABL1 Tricolor, Dual Fusion Translocation Probe ([employer] for ASS1/ABL1 at 9q34 and BCR at 22q11.2 and is interpreted as NORMAL. No rearrangement was observed in 193/200 nuclei, which is within the normal range (up to 1%) established for this probe in the Clinical Genomics Laboratory at [facility]. Variant signal pattern was observed in 7/200 nuclei. Up to 8.5% of cells in normal samples can show random overlap of BCR::ABL1 probes and additional nuclei may show extra or missing signals. A normal BCR::ABL1 FISH finding can result from the absence of a BCR::ABL1 rearrangement, from a variant BCR::ABL1 rearrangement or from an insufficient number of neoplastic cells in the specimen. The FISH findings must be interpreted within the context of the pathologic and clinical findings. Follow-up evaluation is recommended. Complete chromosome analysis is pending and will be reported separately. This test was developed and its performance characteristics determined by [facility]. It has not been cleared or approved by the FDA. The laboratory is regulated under CLIA as qualified to perform high-complexity testing. This test is used for clinical purposes. It should not be regarded as investigational or for research. Professional component performed by Gisela Man, Ph.D., [facility], [address], [place], [place] (CLIA #: [id number]). Chromosome analysis and Fluorescence In Situ Hybridization (FISH) analysis are performed using the [employer] Imaging System. Report Electronically Reviewed and Signed Out By Gisela Man, PhDDate Reported: 04/29/2025 us Chiara Colon MD LAB GENETIC TESTING Final Result [facility] - CYTOGENETICS [address] [place] [address] * Diagnosis MyeloSeq Heme NGS Panel with Interpretation Bone marrow (04/26/2025 10:57 AM CDT) Bone marrow (Bone Marrow Biopsy) 04/26/2025 10:57 AM CDT 04/27/2025 8:36 AM CDT Narrative [facility]ET[facility] - 05/07/2025 2:07 PM CDT [facility] [address] [place] [address] Final Report Patient Name: XAVIER TOMLINSON Address: [address] [place] [address] [place] [address] Gender: F : 1955 (Age: 69) Accessioned: 04/27/2025 Taken: 04/26/2025 Received: 04/27/2025 Physician(s): Chiara Colon MD Service: [facility] Location: [facility] #: [id number] Patient Type: WU-EPIC MyeloSeq Molecular DiagnosticsReported:05/07/2025 Varients Detected: GENE EXON VARIANT PROTEIN CHANGE VAF CLINICAL SIGNIFICANCE* PREVIOUSLY DETECTED JAK2 14 MISSENSE V617F 52% PATHOGENIC NO*Please see below for variant classification category details The following prior mutations were not detected: None No mutations were detected in the following sequenced genes and hotspots: ASXL1, BCOR, BCORL1, BRAF, CALR, CBL, CEBPA, CHEK2, CSF3R, CUX1, DDX41, DNMT3A, ETNK1, ETV6, EZH2, FLT3, GATA1, GATA2, GNB1, IDH1, IDH2, KIT, KMT2A, KRAS, MPL, MYC, NF1, NOTCH1, NPM1, NRAS, PHF6, PIGA, PPM1D, PRPF8, PTPN11, RAD21, RUNX1, SETBP1, SF3B1, SMC1A, SMC3, SRSF2, STAG2, STAT3, STAT5B, SUZ12, TET2, TP53, U2AF1, UBA1, UBTF, WT1, ZRSR2 Variant Interpretation: A JAK2 p.V617F variant is identified, consistent with the diagnosis of a myeloproliferative neoplasm. Correlation with patient history and the corresponding bone marrow morphology, flow cytometry, and cytogenetic studies is recommended. Clinical History: 69-year-old woman, who presents for evaluation in the setting of persistent leukocytosis and a JAK2 p.V617F variant. Corresponding bone marrow biopsy ([id number]) shows hypercellular marrow with megakaryocytic hyperplasia and dysplasia without any significant increase in blasts or marrow fibrosis. Corresponding cytogenetic studies ([id number]) show no evidence of clonal aberrations by fluorescence in situ hybridization (chromosome analysis is pending). Specimen site: Bone marrow Variant Detail: Gene Location (GRCh38) Reference allele Variant allele Transcript:Coding change Population Frequency* JAK2 [id number] G T [id number]:c.1849G>T 0.060%*The population allele frequency represents the maximum observed allele frequency in a diverse set of worldwide populations. QC Data: The following hotspots passed sequencing QC metrics: BRAF (codon 600), CALR (codon 9), CEBPA (codon domain), DNMT3A (codon 882), FLT3 (codons 835,569-613), IDH1 (codon 132), IDH2 (codons 140,172), JAK2 (codon 617), KIT (codon 816), KRAS (codons 61,12-13), MPL (codon 515), NPM1 (codons 287-288), NRAS (codons 61,12-13), SF3B1 (codons 700,662-666,622-626), SRSF2 (codons 95,103), TP53 (codons 238,248,273,275), U2AF1 (codons 34,157), UBA1 (codon 41) The following target genes failed minimum sequencing QC metrics (>=95% of positions >=250x): no genes failed QC Myeloseq Assay Version 3.0 This laboratory developed test (LDT) was developed and its performance characteristics determined by the CLIA Licensed Environment laboratory at the [facility] ([facility], CLIA #[id number], CAP #[id number]), Dr. Derrick Alfonso MD, PhD, FCAP, Telehealth Director. [address] [place] [address], [address] [address] . The [facility] laboratory is regulated under CLIA as certified to perform high-complexity testing. Interpretation of sequencing results and case sign out is performed by Pathology and Immunology faculty in the Division of Genomic and Molecular Pathology (-Clinical Genomics Laboratory, CLIA #[id number], CAP #[id number]) Dr. Cyndie Canas Ph.D., Telehealth Director. Clinical Genomics Laboratory, [facility], [facility] [address], [place] [address] [phone] . The Clinical Genomics Laboratory is regulated under CLIA as certified to perform high-complexity testing. This test has not been cleared or approved by the FDA. This test uses hybridization capture-based enrichment that incorporates unique molecular identifiers (MORE) coupled with Illumina-based next generation sequencing. A total of 54 genes and hotspots (partial genes) are targeted by the assay using approximately 30GBases of sequencing data generated on an Dash X Plus. This test has been validated according to CAP guidelines for the detection of single nucleotide variants (SNVs) and indels (max validated size 117bp). This assay has two limits of detection: for new variants (not previously reported by MyeloSeq) sensitivity is limited to 2% VAF; for previously reported variants the sensitivity is >95% for variants with VAFs >0.1%. The actual limit of detection (LOD) for known variants is limited by coverage at the sequenced position. This test does not use paired normal (germline) DNA to determine the somatic status of detected variants; somatic status for detected variants is inferred if the maximum observed allele frequency in a diverse set of worldwide populations is <0.1%. Common population polymorphisms (SNPs) are not reported by this assay and this assay does not distinguish rare inherited (constitutional variants) from somatic variants; should there be sufficient clinical concern for a constitutional cancer-associated mutation, please contact the laboratory for additional testing information. All variants are reported using HGVS nomenclature based on GRCh38 genomic coordinates. Transcripts are reported using the most canonical reference. Variants detected by this assay are classified into one of the following five categories: 1. Potentially therapeutic: target or biomarker for FDA-approved therapies. 2. Pathogenic: recurrent finding in high-quality peer-reviewed studies or meets the criteria for disease-related somatic mutation by NCCN guidelines. 3. Possibly germline: possibly germline variant based on VAF and population frequency; this assay is not designed to detect germline variants; confirmatory germline testing is required to determine the origin of any reported variant. Note: in the post-transplant setting, possibly germline variants are subclassified as possibly germline, recipient-derived or possibly germline, donor-derived based on comparison to historical results, if available. 4. Possibly donor-derived: detected after stem cell transplant in an engrafted patient but not present in pre-transplant studies, most consistent with donor- derived clonal hematopoiesis. 5. Uncertain significance: does not meet any of the above criteria and is therefore of uncertain clinical significance. Molecular testing using these methods is expected to be accurate. However, the chance of a false positive or false negative result due to laboratory errors incurred during any phase of testing cannot be completely excluded. [facility] does not have control over the quantity, quality or provenance of specimens originating from outside institutions. Accordingly, [facility] disclaims any and all responsibility and liability arising from a false positive or false negative result that may arise from an insufficient quantity of specimen, poor specimen quality, or contamination of specimen. This Report was generated using the materials and methods described above, which required the use of various reagents, protocols, instruments, software, databases, and other items, some of which were provided or made accessible by third parties. A defect or malfunction in any such reagents, protocols, instruments, software, databases, and/or other items may compromise the quality or accuracy of the Report. The Report has been created based on, or incorporates references to, various scientific manuscripts, references, and other sources of information, including without limitation manuscripts, references, and other sources of information that were prepared by third parties that describe correlations between certain genetic mutations and particular diseases (and/or certain therapeutics that may be useful in ameliorating the effects of such diseases). Such information and correlations are subject to change of address clerk time in response to future scientific and medical findings. makes no representation or warranty of any kind, expressed or implied, regarding the accuracy of the information provided by or contained in such manuscripts, references, and other sources of information. If any of the information provided by or contained in such manuscripts, references, and other sources is later determined to be inaccurate, the accuracy and quality of the Report may be adversely impacted. is not obligated to notify you of any impact that future scientific or medical research findings may have on the Report. The Report must always be interpreted and considered within the clinical context, and a physician should always consider the Report along with all other pertinent information and data that a physician would prudently consider prior to providing a diagnosis to a patient or developing and implementing a plan of care for a patient. The Report should never be considered or relied upon alone in making any diagnosis or prognosis. The manifestation of many diseases are caused by more than one gene variant, a single gene variant may be relevant to more than one disease, and certain relevant gene variants may not have been considered in the Report. In addition, many diseases are caused or influenced by modifier genes, epigenetic factors, environmental factors, and other variables that are not addressed by the Report (or that are otherwise unknown). As such, the relevance of the Report should be interpreted in the context of a patient's clinical manifestations. The Report provided by [facility] is provided on an IS basis. makes no representation or warranty of any kind, expressed or implied, regarding the Report. In no event shall [facility] be liable for any actual damages, indirect damages, and/or special or consequential damages arising out of or in any way connected with the Report, your use of the Report, your reliance on the Report, or any defect or inaccurate information included within the Report. Vasiliy Nunez MD, PhDReport Electronically Reviewed and Signed Out By Vasiliy Nunez MD, PhD 05/07/2025 14:05:22 us Chiara Colon MD LAB PATHOLOGY ORDERABLES Final Result [facility] [address] [place] [address] * (ABNORMAL) Differential, auto (04/26/2025 9:38 AM CDT) Neutrophil abs 8.85(H) 1.50 - 6.50 K/cumm Comment:Testing performed by : [address] [address] Imm gran abs 0.06 0.00 - 0.10 K/cumm [facility] Comment:Testing performed by : [address] [address] Lymphocyte abs 1.75 0.80 - 3.30 K/cumm [facility] Comment:Testing performed by : [address] [address] Monocyte abs 0.55 0.20 - 0.80 K/cumm [facility] Comment:Testing performed by : [address] [address] Eosinophil abs 0.23 0.00 - 0.50 K/cumm [facility] Comment:Testing performed by : [address] [address] Basophil abs 0.23(H) 0.00 - 0.10 K/cumm [facility] Comment:Testing performed by : [address] [address] Neutrophil pct 75.8 % [facility] [place] Comment: Interpretive Data Percent cell count reference ranges are not reported, since discordance with absolute values may lead to misinterpretation of CBC data. Current Interpretive Data was last revised on 2018. Testing performed by: [address] [address] Imm gran pct 0.5 % [facility] Comment: Interpretive Data Percent cell count reference ranges are not reported, since discordance with absolute values may lead to misinterpretation of CBC data. Current Interpretive Data was last revised on 2018. Testing performed by: [address] [address] Lymphocyte pct 15.0 % [facility] Comment: Interpretive Data Percent cell count reference ranges are not reported, since discordance with absolute values may lead to misinterpretation of CBC data. Current Interpretive Data was last revised on 2018. Testing performed by: [address] [address] Monocyte pct 4.7 % [facility] Comment: Interpretive Data Percent cell count reference ranges are not reported, since discordance with absolute values may lead to misinterpretation of CBC data. Current Interpretive Data was last revised on 2018. Testing performed by: [address] [address] Eosinophil pct 2.0 % [facility] Comment: Interpretive Data Percent cell count reference ranges are not reported, since discordance with absolute values may lead to misinterpretation of CBC data. Current Interpretive Data was last revised on 2018. Testing performed by: [address] [address] Basophil pct 2.0 % [facility] Comment: Interpretive Data Percent cell count reference ranges are not reported, since discordance with absolute values may lead to misinterpretation of CBC data. Current Interpretive Data was last revised on 2018. Testing performed by: [address] [address] Blood 04/26/2025 9:38 AM CDT 04/26/2025 9:43 AM CDT us Chiara Colon MD LAB BLOOD ORDERABLES Angelica l Result [facility] [address] [facility] Department [place] [address] * (ABNORMAL) CBC with auto differential (04/26/2025 9:38 AM CDT) WBC 11.67(H) 3.80 - 9.90 K/cumm Comment:Testing performed by : [address] [address] Hgb 14.8 11.9 - 15.5 g/dL [facility] Comment:Testing performed by : [address], [address] Hct 47.6(H) 35.6 - 45.5 % [facility] Comment:Testing performed by : [address] [address] Plt 657(H) 150 - 400 K/cumm [facility] Comment:Testing performed by : [address] [address] MPV 10.8 9.1 - 12.3 fL [facility] Comment:Testing performed by : [address], [address] RBC 6.20(H) 3.90 - 5.20 M/cumm [facility] Comment:Testing performed by : [address] [address] MCV 76.8(L) 81.3 - 96.4 fL [facility] Comment:Testing performed by : [address] [address] MCH 23.9(L) 27.1 - 33.3 pg [facility] Comment:Testing performed by : [address] [address] MCHC 31.1(L) 32.3 - 35.7 g/dL [facility] Comment:Testing performed by : [address], [address] RDW CV 18.9(H) 11.1 - 14.9 % [facility] Comment:Testing performed by : [address] [address] RDW SD 48.1 35.7 - 48.1 fL [facility] Comment:Testing performed by : [address] [address] NRBC abs 0.00 0.00 - 0.01 K/cumm [facility] Comment:Testing performed by : [address] [address] ANC Prelim 8.85(H) 1.50 - 6.50 K/cumm [facility] Comment: Interpretive Data The rapid ANC is a preliminary automated count and may vary from the final ANC (Neut Abs) reported in the WBC differential that follows. Current interpretive data was last revised 2025. Testing performed by: [facility], [address] [place] [address]., [address] Blood 04/26/2025 9:38 AM CDT 04/26/2025 9:43 AM CDT us Chiara Colon MD LAB BLOOD ORDERABLES Angelica l Result [facility] [address] [facility] Department [place] [address] * (ABNORMAL) CBC with auto differential (04/15/2025 3:10 PM CDT) WBC 11.7(H) 3.4 - 10.8 x10E3/uL [facility] - 01 RBC 5.95(H) 3.77 - 5.28 x10E6/uL [facility] - 01 Hgb 14.4 11.1 - 15.9 g/dL [facility] - 01 Hct 48.3(H) 34.0 - 46.6 % [facility] - 01 MCV 81 79 - 97 fL [facility] - 01 MCH 24.2(L) 26.6 - 33.0 pg [facility] - 01 MCHC 29.8(L) 31.5 - 35.7 g/dL [facility] - 01 Rdw 15.6(H) 11.7 - 15.4 % [facility] - 01 Platelets 665(H) 150 - 450 x10E3/uL [facility] - 01 Neutrophils pct 67 Not Estab. % [facility] - 01 Lymphs pct 21 Not Estab. % [facility] - 01 Monocytes pct 7 Not Estab. % [facility] - 01 Eosinophils pct 3 Not Estab. % [facility] - 01 Basophil pct 2 Not Estab. % [facility] - 01 Neutrophil abs 8.0(H) 1.4 - 7.0 x10E3/uL [facility] - 01 Lymphs (Absolute) 2.4 0.7 - 3.1 x10E3/uL [facility] - 01 Monocyte abs 0.8 0.1 - 0.9 x10E3/uL [facility] - 01 Eosinophils, abs 0.3 0.0 - 0.4 x10E3/uL [facility] - 01 Basophils, abs 0.2 0.0 - 0.2 x10E3/uL [facility] - 01 Immature Granulocytes 0 Not Estab. % [facility] - 01 Immature Grans (Abs) 0.0 0.0 - 0.1 x10E3/uL [facility] - 01 Blood 04/15/2025 3:10 PM CDT 04/15/2025 Narrative [facility] - 04/16/2025 7:09 AM CDT Performed at: [address] [place] [id number] Filenet Developer: Michael Singh PhD, Phone: [phone] Chiara Colon MD LAB BLOOD ORDERABLES Angelica l Result Performing Organization Address [facility] Co de Phone Number [facility] * Erythropoietin (04/15/2025 3:10 PM CDT) [facility] Erythropoietin 3.2 2.6 - 18.5 mIU/mL LABPR[facility] - Comment: [employer] DxI 800 Immunoassay System Values obtained with different assay methods or kits cannot be used interchangeably. Results cannot be interpreted as absolute evidence of the presence or absence of malignant disease. Blood 04/15/2025 3:10 PM CDT 04/15/2025 Narrative [facility] - 04/16/2025 5:09 PM CDT Performed at: [address] [place] [id number] [employer] Developer: Michael Singh PhD, Phone: [phone] Chiara Colon MD LAB BLOOD ORDERABLES Angelica l Result Performing Organization Address [facility]/ZIP Co de Phone Number [facility] * Comprehensive metabolic panel (04/15/2025 3:10 PM CDT) [facility] Glucose 86 70 - 99 mg/dL [facility] - 01 BUN 21 8 - 27 mg/dL [facility] - 01 Creatinine, Serum 0.96 0.57 - 1.00 mg/dL [facility] - 01 eGFR 63 >59 mL/min/1.73 [facility] - 01 BUN/creat ratio 22 12 - 28 [facility] - 01 Sodium 138 134 - 144 mmol/L [facility] - 01 Potassium, sr 5.0 3.5 - 5.2 mmol/L [facility] - 01 Chloride 100 96 - 106 mmol/L [facility] - 01 CO2 22 20 - 29 mmol/L [facility] - 01 Calcium 9.3 8.7 - 10.3 mg/dL [facility] - 01 Protein, sr 6.9 6.0 - 8.5 g/dL [facility] - 01 Albumin 4.3 3.8 - 4.8 g/dL [facility] - 01 Globulin, Total 2.6 1.5 - 4.5 g/dL [facility] - 01 Bilirubin, Total 0.6 0.0 - 1.2 mg/dL [facility] - 01 Alk phos 106 44 - 121 IU/L [facility] - 01 AST 23 0 - 40 IU/L [facility] - 01 ALT 20 0 - 32 IU/L [facility] - 01 Blood 04/15/2025 3:10 PM CDT 04/15/2025 Narrative [facility] - 04/16/2025 7:09 AM CDT Performed at: [address] [place] [address] [id number] Filenet Developer: Michael Singh PhD, Phone: [phone] us Chiara Colon MD LAB BLOOD ORDERABLES Angelica l Result [facility] - 01 * (ABNORMAL) JAK2/CALR/MPL testing cascade (04/12/2025 10:31 AM CDT) [facility] JAK2 V617F Positive(A) Not Detected [facility] Comment:Testing performed by : [facility], 1 [facility]. [facility], [address] JAK2 V617F % 62.77% [facility] Comment:Testing performed by : [facility], 1 [place]., [address] JAK2 V617F Interpretation Positive: The JAK2 V617F mutation was detected at the allele percentage reported above. Because of this positive result (>2%), reflex testing for CALR and MPL mutations will not be performed. A JAK2 V617F mutation is detected in 98% of patients with polycythemia vera (PV), 55% of patients with essential thrombocythemia (ET), and 60% of patients with primary myelofibrosis (PMF). This JAK2 V617F test result should be interpreted within the context of clinical and pathological findings for a definitive diagnosis. [facility]AL Comment:Testing performed by : [facility], 1 [facility], [address] JAK2 V617F Specimen Blood [facility] Comment:Testing performed by : [facility], 1 [facility], [address] JAK2 V617F Result Review Final report reviewed by: Arely Obregon MS, LILIANA([facility]) Green Chainer, on 04/15/2025 13:59:45 CDT. K[facility]STAL NESS Comment: Interpretive Data Method: The assay detects the JAK2 V617F ([id number]: c.[id number]>T) mutation using PCR primers and allele-specific dye-labeled oligonucleotides that exactly match the mutant or normal alleles. When perfectly hybridized to the template DNA sequence, the labeled oligonucleotides are cleaved by the 5 -> 3 exonuclease activity of DNA polymerase. Cleavage during the exponential phase of PCR releases the level glass vial filler dye from the quencher and the signal is quantified (real time quantitative PCR). The results report the mutant allele proportion of total JAK2 alleles. The validated limit of detection for this assay is 0.1%. FDA Comment: This test was developed and its performance characteristics determined by this [facility]. It has not been cleared or approved by the U.S. Food and Drug Administration. FDA does not require this test to go through premarket FDA review. This test is used for clinical purposes. It should not be regarded as investigational or for research. This laboratory is certified under the Clinical Laboratory Improvement Amendments (CLIA) as qualified to perform high complexity clinical laboratory testing. Literature References: 1. Belinda Yen D, Elisa R, Hu RC. Genetic basis and molecular profiling in myeloproliferative neoplasms. Blood. 2022Feb 21;141(30):1904 3 922. PMCID: [id number] This test was performed at: [facility], [facility], CLIA#[id number], Swapna Verma, Ph.D., [place], [address], [place] Current interpretive data was last revised 2024. Testing performed by: [facility], [address] [place] [address]., [address] Blood 04/12/2025 10:3 1 AM CDT 04/12/2025 2:45 PM CDT Chiara Colon MD LAB GENETIC TESTING Final Result [address] [place] [address] [facility] * Cytogenetics Specimen Tracking Blood (04/12/2025 10:31 AM CDT) Pathologist [facility]enetics Tracking Order Received Comment:Testing performed by : [facility], [address] [place] [address]., [address] Blood 04/12/2025 10:3 1 AM CDT 04/12/2025 1:58 PM CDT Narrative K[facility]STAL - 04/30/2025 12:16 PM CDT Please read the Cytogenetics Epic requisition for specimen collection requirements. Chiara Colon MD LAB BODY FLUIDS AND STOOL S ORDERABLES Final Result [address] [place] [address] * Slide review - pathologist (04/12/2025 10:31 AM CDT) Pathologist [facility] Slide review by See Comment Comment: On smear review, the white cells, red cells and platelets are elevated. No immature WBCs seen. Large platelets are present. RBCs appear slightly hypochromic and anisocytosis is present. Reviewed by Karen Solis MLS([facility]) Testing performed by: [address] [address] Blood 04/12/2025 10:3 1 AM CDT 04/12/2025 10:44 AM CDT Chiara Colon MD LAB BLOOD ORDERABLES Angelica l Result Performing Organization Address City/[facility]/ZIP Co de Phone Number [facility] [address] [facility] [place] [address] * (ABNORMAL) Iron profile w/ IBC (04/12/2025 10:31 AM CDT) [facility] Iron 33(L) 35 - 145 mcg/dL Comment:Testing performed by : [facility], [address] [place] [address]., [address] TIBC 438(H) 250 - 400 mcg/dL KRISTAL Comment:Testing performed by : [address] [address] Transferrin saturation 8(L) 20 - 50 % KRISTAL Comment:Testing performed by : [address] [address] Blood 04/12/2025 10:3 1 AM CDT 04/12/2025 11:41 AM CDT Cihara Colon MD LAB BLOOD ORDERABLES Angelica l Result [facility] [address] [facility] [place] [address] * Hepatitis panel, acute Blood (04/12/2025 10:31 AM CDT) [facility] Hep A IgM Nonreactive Nonreactive Comment: Interpretive Data: If Hep A IgM Ab is reported as Equivocal, a new sample should be drawn in two weeks for testing. Current interpretive data was last revised on 20. Hep B core IgM Nonreactive Nonreactive [facility] Comment: Interpretive Data If HepB Core IgM Ab is reported as Equivocal, a new sample should be drawn in two weeks for testing. Current interpretive data was last revised on 20. Hep C Ab Nonreactive Nonreactive [facility] Comment: Antibodies to HCV not detected. Does NOT exclude the possibility of recent exposure to HCV. Current interpretive data was last revised on 22 Interpretive Data Nonreactive: Antibodies to HCV not detected. Does NOT exclude the possibility of recent exposure to HCV. Equivocal: Equivocal for HCV antibodies. Supplemental molecular testing will be automatically performed to determine infection status in accordance with current CDC screening recommendations. Reactive: Positive for HCV antibodies. This may represent current or past HCV infection. Supplemental molecular testing will be automatically performed to determine current infection status in accordance with current CDC screening recommendations. Interpretive data was last revised on 2020. HepBsAg Nonreactive Nonreactive [facility] Blood 04/12/2025 10:3 1 AM CDT 04/12/2025 12:17 PM CDT Chiara Colon MD LAB MICROBIOLOGY - GENERA L ORDERABLES Final Result Performing Organization Address City/[facility]/ZIP Co de Phone Number [address] [place] [address] * Ferritin (04/12/2025 10:31 AM CDT) Pathologist [facility] Ferritin 33 15 - 150 ng/mL Comment:Testing performed by : [facility], [address] [place] [address]., [id number] Blood 04/12/2025 10:3 1 AM CDT 04/12/2025 11:41 AM CDT Chiara Colon MD LAB BLOOD ORDERABLES Angelica l Result [address] [place] [address] * Cytogenetics Blood (04/12/2025 10:30 AM CDT) Blood (Peripheral Blood For Pathologist Review) 04/12/2025 10:30 AM CDT 04/12/2025 10:30 AM CDT [facility] DIAGNOSTIC LAB - CYTOGENETICS - 04/19/2025 8:43 PM CDT EPIC results best viewed via link to PDF [facility] Department of Pathol [address] [place] [id number] Patient Information Name: XAVIER TOMLINSON Gender: F : 1955 (Age: 69) Tissue: Leukemic Blood Visit Information Hospital #: [id number] Facility: [facility] Service: WU Location: [facility] Patient Type: [facility] Specimen Information: Culture #: [id number] Date Collected: 04/12/2025 Date Accessioned: 04/12/2025 Date Ordered: 04/12/2025 Physician(s): Chiara Colon MD Processing: Direct unstimulated - 24 hours unstimulated Indication: Leukocytosis Specimen Quality: Low cell count Adequate: FISH No Metaphases - Chromosome Analysis CLINICAL REPORT CHROMOSOME ANALYSIS Karyotype: nuc rafat (ASS1,ABL1,BCR)x2[200] Diagnosis: CHROMOSOME ANALYSIS: NO METAPHASE CELLS AVAILABLE FOR ANALYSIS FISH FINIDNGS: NO EVIDENCE OF BCR::ABL1 REARRANGEMENT INTERPRETATION: No metaphase cells were available for analysis from this specimen due to poor specimen quality and a lack of dividing cells. Therefore, the cytogenetic analysis could not be performed. PLEASE NOTE: All available chromosome preparation was examined looking for analyzable metaphase cells using automated slide-scanning technology and no analyzable cells were found. Chromosome analysis and Fluorescence In Situ Hybridization (FISH) analysis are performed using the [employer] Cytovision Imaging System. Report Electronically Reviewed and Signed Out By Cyndie Canas, PhD, FACMGDate Reported: 5Associate Professor, Division of Genomic & Molecular Pathology FLUORESCENCE IN-SITU HYBRIDIZATION [FISH] Karyotype: nuc rafat (ASS1,ABL1,BCR)x2[200] Diagnosis: FISH FINIDNGS: NO EVIDENCE OF BCR::ABL1 REARRANGEMENT INTERPRETATION: FISH evaluation for a BCR::ABL1 rearrangement was performed on nuclei with the LSI [id number] Tricolor, Dual Fusion Translocation Probe ([employer] for ASS1/ABL1 at 9q34 and BCR at 22q11.2 and is interpreted as NORMAL. No rearrangement was observed in 189/200 nuclei, which is within the normal range (up to 1%) established for this probe in the Clinical Genomics Laboratory at [facility]. Variant signal pattern was observed in 11/200 nuclei. Up to 8.5% of cells in normal samples can show random overlap of BCR::ABL1 probes and additional nuclei may show extra or missing signals. A normal BCR::ABL1 FISH finding can result from the absence of a BCR::ABL1 rearrangement, from a variant BCR::ABL1 rearrangement or from an insufficient number of neoplastic cells in the specimen. The FISH findings must be interpreted within the context of the pathologic and clinical findings. Follow-up evaluation is recommended. Complete chromosome analysis is pending and will be reported separately. This test was developed and its performance characteristics determined by [facility]. It has not been cleared or approved by the FDA. The laboratory is regulated under CLIA as qualified to perform high-complexity testing. This test is used for clinical purposes. It should not be regarded as investigational or for research. Chromosome analysis and Fluorescence In Situ Hybridization (FISH) analysis are performed using the [employer] Cytovision Imaging System. Report Electronically Reviewed and Signed Out By Russell Lynn, PhD, FACMGDate Reported: 04/13/2025ssociate Professor, Division of Genomic & Molecular Pathology Chiara Colon MD LAB GENETIC TESTING Final Result [facility] DIAGNOSTIC LAB - CYTOGENETICS [address] [place] [address] * eGFR (04/06/2025 11:22 AM CDT) eGFR 68 >=60 mL/min/1. 73 m2 Comment: Interpretive Data Reference Interval Normal >/= 90 mL/min/1.73m2 Mildly decreased* 60 - 89 mL/min/1.73m2 Mildly to moderately decreased 45 - 59 mL/min/1.73m2 Moderately to severely decreased 30 - 44 mL/min/1.73m2 Severely decreased 15 - 29 mL/min/1.73m2 Kidney Failure < 15 mL/min/1.73m2 *Relative to young adult level Estimated glomerular filtration rate is determined by the 2020 CKD-EPI equation recommended by the National Kidney Foundation (A Unifying Approach to GFR Estimation: Recommendations of the NKF-ASK Task Force on Reassessing the Inclusion of Race in Diagnosing Kidney Disease, JASN 2020). The CKD-EPI equation should not be used for patients with unstable renal function and has not been validated in children and those over 70. Current interpretive data was last reviewed 2021. Testing performed by: [address] [address] Blood 04/06/2025 11:2 2 AM CDT 04/06/2025 11:27 AM CDT us Chiara Colon MD LAB BLOOD ORDERABLES Angelica pappas Result [facility] [address] [facility] Department [place] [address] * (ABNORMAL) Differential, auto (04/06/2025 11:22 AM CDT) Neutrophil abs 7.85(H) 1.50 - 6.50 K/cumm Comment:Testing performed by : [address] [address] Imm gran abs 0.07 0.00 - 0.10 K/cumm KRISTAL Comment:Testing performed by : [address] [address] Lymphocyte abs 2.29 0.80 - 3.30 K/cumm KRISTAL Comment:Testing performed by : [address] [address] Monocyte abs 0.78 0.20 - 0.80 K/cumm KRISTAL Comment:Testing performed by : [address] [address] Eosinophil abs 0.28 0.00 - 0.50 K/cumm KRISTAL Comment:Testing performed by : [address] [address] Basophil abs 0.23(H) 0.00 - 0.10 K/cumm [facility] Comment:Testing performed by : [address] [address] Neutrophil pct 68.3 % [facility] Comment: Interpretive Data Percent cell count reference ranges are not reported, since discordance with absolute values may lead to misinterpretation of CBC data. Current Interpretive Data was last revised on 2018. Testing performed by: [address] [address] Imm gran pct 0.6 % [facility] Comment: Interpretive Data Percent cell count reference ranges are not reported, since discordance with absolute values may lead to misinterpretation of CBC data. Current Interpretive Data was last revised on 2018. Testing performed by: [address] [address] Lymphocyte pct 19.9 % [facility] Comment: Interpretive Data Percent cell count reference ranges are not reported, since discordance with absolute values may lead to misinterpretation of CBC data. Current Interpretive Data was last revised on 2018. Testing performed by: [address] [address] Monocyte pct 6.8 % [facility] Comment: Interpretive Data Percent cell count reference ranges are not reported, since discordance with absolute values may lead to misinterpretation of CBC data. Current Interpretive Data was last revised on 2018. Testing performed by: [address] [address] Eosinophil pct 2.4 % [facility] Comment: Interpretive Data Percent cell count reference ranges are not reported, since discordance with absolute values may lead to misinterpretation of CBC data. Current Interpretive Data was last revised on 2018. Testing performed by: [address] [address] Basophil pct 2.0 % [facility] Comment: Interpretive Data Percent cell count reference ranges are not reported, since discordance with absolute values may lead to misinterpretation of CBC data. Current Interpretive Data was last revised on 2018. Testing performed by: [address] [address] Blood 04/06/2025 11:2 2 AM CDT 04/06/2025 11:27 AM CDT us Chiara Colon MD LAB BLOOD ORDERABLES Angelica mian Result [facility] [address] [facility] [place] [address] * (ABNORMAL) CBC with auto differential (04/06/2025 11:22 AM CDT) WBC 11.50(H) 3.80 - 9.90 K/cumm Comment:Testing performed by : [address] [address] Hgb 14.8 11.9 - 15.5 g/dL KRISTAL Comment:Testing performed by : [address] [address] Hct 47.4(H) 35.6 - 45.5 % KRISTAL Comment:Testing performed by : [address] [address] Plt 648(H) 150 - 400 K/cumm KRISTAL Comment:Testing performed by : [address] [address] MPV 11.1 9.1 - 12.3 fL KRISTAL Comment:Testing performed by : [address] [address] RBC 6.18(H) 3.90 - 5.20 M/cumm KRISTAL Comment:Testing performed by : [address] [address] MCV 76.7(L) 81.3 - 96.4 fL KRISTAL Comment:Testing performed by : [address] [address] MCH 23.9(L) 27.1 - 33.3 pg KRISTAL Comment:Testing performed by : [address] [address] MCHC 31.2(L) 32.3 - 35.7 g/dL KRISTAL NESS Comment:Testing performed by : [address] [address] RDW CV 18.0(H) 11.1 - 14.9 % KRISTAL Comment:Testing performed by : [address] [address] RDW SD 45.7 35.7 - 48.1 fL KRISTAL Comment:Testing performed by : [address] [address] NRBC abs 0.00 0.00 - 0.01 K/cumm KRISTAL Comment:Testing performed by : [address] [address] ANC Prelim 7.85(H) 1.50 - 6.50 K/cumm KRISTAL Comment: Interpretive Data The rapid ANC is a preliminary automated count and may vary from the final ANC (Neut Abs) reported in the WBC differential that follows. Current interpretive data was last revised 2025. Testing performed by: [address] [address] Blood 04/06/2025 11:2 2 AM CDT 04/06/2025 11:27 AM CDT Chiara Colon MD LAB BLOOD ORDERABLES Angelica l Result Performing Organization Address [facility] Co de Phone Number [facility] [address] [facility] Department [place] [address] * Erythrocyte sedimentation rate (04/06/2025 11:22 AM CDT) [facility] Erythrocyte sedimentation rate 17 1 - 30 mm/hr Comment:Testing performed by : [address] [address] Blood 04/06/2025 11:2 2 AM CDT 04/06/2025 1:45 PM CDT Chiara Colon MD LAB BLOOD ORDERABLES Angelica l Result Performing Organization Address City/[facility] Co de Phone Number K[facility]STAL [address] [facility] Department [place] [address] * CRP (acute phase) (04/06/2025 11:22 AM CDT) Pathologist [facility] CRP 0.4 <=10.0 mg/L Comment:Testing performed by : [address] [address] Blood 04/06/2025 11:2 2 AM CDT 04/06/2025 11:27 AM CDT us Chiara Colon MD LAB BLOOD ORDERABLES Angelica pappas Result [facility] [address] [facility] [place] [address] * Comprehensive metabolic panel (04/06/2025 11:22 AM CDT) Pathologist [facility] Sodium 140 135 - 145 mmol/L Comment:Testing performed by : [address] [address] Potassium, pl 4.4 3.3 - 4.9 mmol/L KRISTAL Comment:Testing performed by : [address] [address] Chloride 103 97 - 110 mmol/L KRISTAL Comment:Testing performed by : [address] [address] CO2 27 22 - 32 mmol/L K[facility]AL Comment:Testing performed by : [address] [address] Anion gap 10 2 - 15 mmol/L [facility]AL Comment:Testing performed by : [address] [address] BUN 23 6 - 25 mg/dL K[facility]STAL Comment:Testing performed by : [address] [address] Creatinine 0.90 0.60 - 1.10 mg/dL [facility]STAL Comment:Testing performed by : [address] [address] Glucose 78 70 - 199 mg/dL [facility]AL Comment: Interpretive Data Fasting glucose >/= 126 mg/dl is diagnostic for diabetes. Fasting is defined as no caloric intake for at least 8 hours. Fasting glucose between 100 mg/dl to 125 mg/dl is diagnostic of prediabetes. In a patient with classic symptoms of hyperglycemia or hyperglycemic crisis, a random glucose >/= 200 mg/dl is diagnostic for diabetes. In the absence of unequivocal hyperglycemia, results should be confirmed by repeat testing. The classification and Diagnosis of Diabetes Diabetes Care 2021; 46: S19-S40. Current interpretive data was last revised 2022. Testing performed by: [address] [address] Calcium 9.5 8.5 - 10.3 mg/dL [facility]AL Comment:Testing performed by : [address] [address] Bilirubin, total 0.6 0.1 - 1.2 mg/dL K[facility]AL Comment:Testing performed by : [address] [address] Protein, pl 7.6 6.5 - 8.5 g/dL K[facility]STAL Comment:Testing performed by : [address] [address] Albumin 4.6 3.5 - 5.0 g/dL K[facility]STAL Comment:Testing performed by : [address] [address] Alk phos 104 40 - 130 Units/L [facility]AL Comment:Testing performed by : [address] [address] ALT 21 7 - 45 Units/L K[facility]STAL Comment:Testing performed by : [address] [address] AST 28 10 - 45 Units/L [facility] Comment:Testing performed by : [address] [address] Blood 04/06/2025 11:2 2 AM CDT 04/06/2025 11:27 AM CDT us Chiara Colon MD LAB BLOOD ORDERABLES Angelica l Result [facility] [address] [facility] Department [place] [address] from Last 3 Months Insurance [facility] MEDICARE ADVANTAGE [facility] MEDICARE ADVANTAGE [employer] MEDICARE ADVANTAGE Care Teams Cad Draftsman Relationship Specialty Start Date End Date Mark Kaplan MD PCP - General 08/29/15
--- OUTSIDE RECORDS SUMMARY | 2025-06-07 13:56 | XMS_ITS | Encounter Summary ---
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 Name Role Phone Unavailable Primary Care Provider Unavailabl e Encounter Details Date Type Department Care Team (Late st Contact Info) Description 02/18/2019 Lab Requisition [facility] Care DermPath Lab [address] [place] [id number] Mark Kaplan MD [address] [place] [address] Social History Tobacco Use Types Packs/Day Years Used Date Smoking Tobacco: Never Assessed Comments Unknown Sex and Gender Information Value Date Recorded Sex Assigned at Not on file Legal Sex Female 5:59 PM 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 Gender Identity Not on file Sexual Orientation Not on file documented as of this encounter Plan of Treatment Not on file documented as of this encounter Procedures Procedure Name Priority Date/Time Associated Diagnosis Comments DERMATOPATHOLOGY Routine 02/17/2019 12:0 0 AM CDT documented in this encounter Results * DERMATOPATHOLOGY (02/17/2019 12:00 AM CDT) Case Report Dermatopathology Report Case: [id number] Authorizing Provider: Mark Kaplan MD Collected: 02/17/2019 12:00 AM Pathologist: Jesus Myles MD Received: 02/18/2019 12:11 PM Specimen: Skin, right upper shoulder 9 4:04 PM CDT DERMATOPATHOLOGY LABORATORY Final Diagnosis Specimen A. 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 Check margins 4:04 PM CDT DERMATOPATHOLOGY LABORATORY Gross Description Specimen A: Received is one formalin filled container labeled with the patient's name and designated right upper shoulder. The specimen consists of a shave biopsy (multiple pieces) measuring 11x6x3 inked, 4x3x1, 5x2x1, and 2x1x1 mm. Jar 0. 4:04 PM CDT DERMATOPATHOLOGY LABORATORY Microscopic Description Specimen A. SKIN, right upper shoulder: Sections show an acanthotic lesion composed of relatively uniform keratinocytes. There is hyperkeratosis and pseudo horn cysts. Pigment is present in the keratinocytes composing this tumor. This lesion is present at the margin of the specimen. 4:04 PM CDT DERMATOPATHOLOGY LABORATORY Disclaimer An external and internal positive and negative controls are appropriate for the histochemical, immunohistochemical and immunofluorescence stain(s) in this case (if any), except where stated explicitly. The performance characteristics of the stain(s) cited in this report were developed and its performance characteristic determined by the Dermatopathology Laboratory at [facility], directed by Dr. Bess Myles. These tests need not be, and therefore are not, approved by the [place] Food and Drug Administration. The tests are used for clinical purposes. Billing Codes Specimen Charges Stain Charges 31804 1 4:04 PM CDT DERMATOPATHOLOGY LABORATORY Embedded Images 4:04 PM CDT DERMATOPATHOLOGY LABORATORY Pathology/Cytolog y TISSUE SPECIMEN FROM SKIN / Unknown 02/17/2019 02/18/2019 12:11 PM CDT Markagnieszka Kaplan MD LAB - PATHOLOGY/CYTOLOGY ZABRINA MONET Final Result DERMATOPATHOLOGY LABORATORY [facility] - Department of Dermatology [facility], [address] [place] [address], [facility] [phone] documented in this encounter Visit Diagnoses Not on filedocumented in this encounter
--- OUTSIDE RECORDS SUMMARY | 2025-06-07 13:56 | XMS_ITS | Referral Summary ---
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 Name Role Phone Mark Kaplan MD Primary Care Provider [phone] Encounters Date Type Department Care Team Description 05/18/2025 10:45 AM CDT Infusion [facility] at [address] [phone] Polycythemia vera (HCC) (Primary Dx); Other elevated white blood cell (WBC) count; Other specified abnormal findings of blood chemistry; JAK2 gene mutation 05/18/2025 9:45 AM CDT Lab [address] [address] Other specified abnormal findings of blood chemistry; Other elevated white blood cell (WBC) count; JAK2 gene mutation 05/18/2025 10:15 AM CDT Office Visit [facility] Hematology [address] [place] [phone] Chiara Colon MD Other specified abnormal findings of blood chemistry; Other elevated white blood cell (WBC) count; JAK2 gene mutation 05/13/2025 7:47 AM CDT - 05/13/2025 11:59 PM CDT Hospital Encounter [facility] Vascular Lab [address] [place] [address] Other elevated white blood cell (WBC) count; Other specified abnormal findings of blood chemistry; JAK2 gene mutation; Leg swelling Discharge Disposition: Discharge to home or self care 05/12/2025 Telephone [facility] Hematology [address] [place] [address] [address] [place] [address] Marilee Jacques 05/12/2025 Orders Only [address] [phone] Marilee Jacquessia Other elevated white blood cell (WBC) count (Primary Dx); Other specified abnormal findings of blood chemistry; JAK2 gene mutation 05/06/2025 Orders Only [facility] Hematology [address] [place] [phone] Marilee Jacques Other elevated white blood cell (WBC) count (Primary Dx); Other specified abnormal findings of blood chemistry; JAK2 gene mutation 05/04/2025 4:15 PM CDT Telemedicine [facility] Hematology [address] [place] [address] [address] [place] [address] Chiara Colon MD Other elevated white blood cell (WBC) count; Other specified abnormal findings of blood chemistry 04/30/2025 Orders Only [address] [phone] Marilee Jacques Other specified abnormal findings of blood chemistry; Other elevated white blood cell (WBC) count; JAK2 gene mutation 04/27/2025 Orders Only [address] [address] Chiara Colon MD Other elevated white blood cell (WBC) count; JAK2 gene mutation 04/26/2025 4:21 PM CDT - 04/26/2025 11:59 PM CDT Hospital [facility] [address] [place] [address] Other elevated white blood cell (WBC) count; JAK2 gene mutation; Polycythemia vera (HCC); Elevated hematocrit; Elevated platelet count Discharge Disposition: Discharge to home or self care 04/26/2025 9:45 AM CDT [facility] at [address] [place] [address] Other specified abnormal findings of blood chemistry; Other elevated white blood cell (WBC) count; JAK2 gene mutation 04/26/2025 9:15 AM CDT Lab [facility] at [address] [address] Other elevated white blood cell (WBC) count; Other specified abnormal findings of blood chemistry; JAK2 gene mutation 04/26/2025 10:00 AM CDT Infusion [facility] at [address] [place] [phone] Polycythemia vera (HCC) (Primary Dx); Other elevated white blood cell (WBC) count; Elevated hematocrit; Elevated platelet count 04/21/2025 Orders Only [facility] Hematology [address] [place] [address] [address] [place] [phone] Marilee Jacques JAK2 gene mutation (Primary Dx); Other elevated white blood cell (WBC) count; Other specified abnormal findings of blood chemistry 04/20/2025 4:30 PM CDT Telemedicine [facility] Hematology [address] [place] [phone] Chiara Colon MD Other specified abnormal findings of blood chemistry (Primary Dx); Other elevated white blood cell (WBC) count; JAK2 gene mutation 04/16/2025 9:45 AM CDT Telemedicine [facility] Hematology [address] [place] [address] [address] [place] [phone] Chiara Colon MD JAK2 gene mutation (Primary Dx); Other elevated white blood cell (WBC) count; Other specified abnormal findings of blood chemistry 04/15/2025 1:59 PM CDT - 04/15/2025 11:59 PM CDT Hospital Encounter [facility] [address] [facility] 1st [place] [address] Discharge Disposition: Discharge to home or self care 04/15/2025 Orders Only [facility] Hematology [address] [place] [address] [address] [place] [phone] Marilee Jacques Other elevated white blood cell (WBC) count (Primary Dx); Other specified abnormal findings of blood chemistry 04/15/2025 Orders Only [facility] Hematology [address] [phone] Marilee Jacques Other elevated white blood cell (WBC) count (Primary Dx); Other specified abnormal findings of blood chemistry 04/12/2025 Orders Only [facility] Hematology [address] [place] [phone] Marilee Jacques 04/12/2025 10:00 AM CDT Lab [facility] [place] at [address] [address] Other elevated white blood cell (WBC) count; Other specified abnormal findings of blood chemistry 04/09/2025 Orders Only [facility] Hematology [address] [place] [phone] Marilee Jacques Other elevated white blood cell (WBC) count (Primary Dx); Other specified abnormal findings of blood chemistry 04/06/2025 11:30 AM CDT Lab [address] [address] Other elevated white blood cell (WBC) count 04/06/2025 10:15 AM CDT Office Visit [facility] Physicians [facility] Hematology [address] [place] [address] [place] [phone] Chiara Colon MD Other elevated white blood cell (WBC) count; Other specified abnormal findings of blood chemistry 03/30/[address] [facility] Hematology [address] [place] [phone] Hien Felton from Last 3 Months Allergies Active Allergy Reactions Criticality Noted Date [...] gel Apply topically daily apply to face Active hydroxyurea (HYDREA) 500 mg capsuleIndicati ons:Other specified abnormal findings of blood chemistry,Other elevated white blood cell (WBC) count Take 2 capsules (1,000 mg total) by mouth 2 (two) times a day 360 capsule 3 Active lisinopriL (PRINIVIL,ZESTR IL) 10 mg tablet Take 1 tablet (10 mg total) by mouth daily Active Active Problems Problem Noted Date Diagnosed Date Polycythemia vera 04/20/2025 Diastolic dysfunction 05/16/2023 Social History Tobacco Use Types Packs/Day Years [...] on file Legal Sex Female 8:15 AM [employer] Gender Identity Not on file Sexual Orientation Not on file Last Filed Vital Signs Vital Sign Reading [...] 04/06/2025 10:11 AM CDT Plan of Treatment Not on file Procedures Procedure Name Priority Date/Time Associated Diagnosis [...] - 06/02/2025 7:09 AM CDT Performed at: 01 - [address] [id number] Filter Operator: Michael Singh PhD, Phone: [phone] us Chiara Colon MD LAB BLOOD ORDERABLES Angelica l Result [facility] - 01 * (ABNORMAL) Comprehensive metabolic panel (06/01/2025 3:30 PM CDT) Glucose 110(H) 70 - 99 mg/dL [facility] [...] - 06/02/2025 8:11 AM CDT Performed at: [address], [place], [place] [id number] Filter Operator: Michael Singh PhD, Phone: [phone] Chiara Colon MD LAB BLOOD ORDERABLES Angelica l [facility] - 01 * eGFR (05/18/2025 9:54 AM CDT) eGFR 79 >=60 mL/min/1. 73 m2 Comment: [...] was last reviewed 2021. Testing performed by: [facility], [address] [place] [address]., [address] Blood 05/18/2025 9:54 AM CDT 05/18/2025 9:59 AM CDT us Chiara Colon MD LAB BLOOD ORDERABLES Angelica l Result [facility] [address] [facility] Department [place] [address] * (ABNORMAL) Differential, auto (05/18/2025 9:54 AM CDT) Neutrophil abs 1.65 1.50 - 6.50 K/cumm Comment:Testing performed by : [address], [place]., [address] Imm gran abs 0.01 0.00 - 0.10 K/cumm [facility] Comment:Testing performed by : [address], [place]., [address] Lymphocyte abs 1.56 0.80 - 3.30 K/cumm [facility] Comment:Testing performed by : [address], [place]., [address] Monocyte abs 0.18(L) 0.20 - 0.80 K/cumm [facility] Comment:Testing performed by : [address], [place]., [address] Eosinophil abs 0.05 0.00 - 0.50 K/cumm [facility] Comment:Testing performed by : [address] [address] Basophil abs 0.09 0.00 - 0.10 K/cumm [facility] Comment:Testing performed by : [address] [address] Neutrophil pct 46.6 % [facility] Comment: Interpretive Data Percent cell count reference ranges are not reported, since discordance with absolute values may lead to misinterpretation of CBC data. Current Interpretive Data was last revised on 2018. Testing performed by: [address] [address] Imm gran pct 0.3 % [facility] Comment: Interpretive Data Percent cell count reference ranges are not reported, since discordance with absolute values may lead to misinterpretation of CBC data. Current Interpretive Data was last revised on 2018. Testing performed by: [address] [address] Lymphocyte pct 44.1 % [facility] Comment: Interpretive Data Percent cell count reference ranges are not reported, since discordance with absolute values may lead to misinterpretation of CBC data. Current Interpretive Data was last revised on 2018. Testing performed by: [address] [address] Monocyte pct 5.1 % [facility] Comment: Interpretive Data Percent cell count reference ranges are not reported, since discordance with absolute values may lead to misinterpretation of CBC data. Current Interpretive Data was last revised on 2018. Testing performed by: [address] [address] Eosinophil pct 1.4 % [facility] Comment: Interpretive Data Percent cell count reference ranges are not reported, since discordance with absolute values may lead to misinterpretation of CBC data. Current Interpretive Data was last revised on 2018. Testing performed by: [address] [address] Basophil pct 2.5 % [facility] Comment: Interpretive Data Percent cell count reference ranges are not reported, since discordance with absolute values may lead to misinterpretation of CBC data. Current Interpretive Data was last revised on 2018. Testing performed by: [address] [address] Blood 05/18/2025 9:54 AM CDT 05/18/2025 9:59 AM CDT us Chiara Colon MD LAB BLOOD ORDERABLES Angelica l Result [facility] [address] [facility] Department [place] [address] * (ABNORMAL) CBC with auto differential (05/18/2025 9:54 AM CDT) WBC 3.54(L) 3.80 - 9.90 K/cumm Comment:Testing performed by : [address] [address] Hgb 14.3 11.9 - 15.5 g/dL [facility] Comment:Testing performed by : [address] [address] Hct 45.3 35.6 - 45.5 % [facility] Comment:Testing performed by : [address] [address] Plt 189 150 - 400 K/cumm [facility] Comment:Testing performed by : [address] [place] [address] MPV 9.0(L) 9.1 - 12.3 fL [facility] Comment:Testing performed by : [address] [address] RBC 5.68(H) 3.90 - 5.20 M/cumm [facility] Comment:Testing performed by : [address] [address] MCV 79.8(L) 81.3 - 96.4 fL [facility] Comment:Testing performed by : [address] [address] MCH 25.2(L) 27.1 - 33.3 pg [facility] Comment:Testing performed by : [address] [address] MCHC 31.6(L) 32.3 - 35.7 g/dL [facility] Comment:Testing performed by : [address], [address] RDW CV 22.0(H) 11.1 - 14.9 % [facility] Comment:Testing performed by : [address] [address] RDW SD 47.5 35.7 - 48.1 fL [facility] Comment:Testing performed by : [address] [address] NRBC abs 0.00 0.00 - 0.01 K/cumm [facility] Comment:Testing performed by : [address], [address] ANC Prelim 1.65 1.50 - 6.50 K/cumm [facility] Comment: Interpretive Data The rapid ANC is a preliminary automated count and may vary from the final ANC (Neut Abs) reported in the WBC differential that follows. Current interpretive data was last revised 2025. Testing performed by: [address] [address] Blood 05/18/2025 9:54 AM CDT 05/18/2025 9:59 AM CDT Chiara Colon MD LAB BLOOD ORDERABLES Angelica l Result Performing Organization Address City/[facility] Co de Phone Number [address] [place] [address] * Lactate dehydrogenase (LD) (05/18/2025 9:54 AM CDT) Pathologist [facility] Lactate dehydrogenase (LDH) 246 100 - 250 Units/L Comment:Testing performed by : [address] [address] Blood 05/18/2025 9:54 AM CDT 05/18/2025 9:59 AM CDT Chiara Colon MD LAB BLOOD ORDERABLES Angelica l Result Performing Organization Address [facility] Co de Phone Number [address] [place] [address] * (ABNORMAL) Comprehensive metabolic panel (05/18/2025 9:54 AM CDT) Pathologist [facility] Sodium 140 135 - 145 mmol/L Comment:Testing performed by : [address] [address] Potassium, pl 4.1 3.3 - 4.9 mmol/L [facility] Comment:Testing performed by : [address] [address] Chloride 104 97 - 110 mmol/L [facility] Comment:Testing performed by : [address] [address] CO2 27 22 - 32 mmol/L [facility] Comment:Testing performed by : [address] [address] Anion gap 9 2 - 15 mmol/L [facility] Comment:Testing performed by : [address] [address] BUN 20 6 - 25 mg/dL [facility] Comment:Testing performed by : [address] [address] Creatinine 0.80 0.60 - 1.10 mg/dL [facility] Comment:Testing performed by : [address] [address] Glucose 64(L) 70 - 199 mg/dL [facility] Comment: Interpretive [...] was last revised 2022. Testing performed by: [address] [address] Calcium 9.3 8.5 - 10.3 mg/dL [facility] Comment:Testing performed by : [address] [address] Bilirubin, total 0.8 0.1 - 1.2 mg/dL [facility] Comment:Testing performed by : [address] [address] Protein, pl 7.3 6.5 - 8.5 g/dL [facility] Comment:Testing performed by : [address] [address] Albumin 4.4 3.5 - 5.0 g/dL [facility] Comment:Testing performed by : [address] [address] Alk phos 88 40 - 130 Units/L [facility] Comment:Testing performed by : [address] [address] ALT 42 7 - 45 Units/L [facility] Comment:Testing performed by : [address] [address] AST 46(H) 10 - 45 Units/L [facility] Comment:Testing performed by : [address] [address] Blood 05/18/2025 9:54 AM CDT 05/18/2025 9:59 AM CDT us Chiara Colon MD LAB BLOOD ORDERABLES Angelica mian Result [facility] [address] [facility] Department [place] [address] * US VEIN DUPLEX LOWER EXTREMITY LEFT LIMITED, UNILATERAL (05/13/2025 8:33 AM CDT) Anatomical Region Laterality Modality Vascular Left Ultrasound 05/13/2025 8:00 AM CDT Narrative 05/14/2025 8:39 AM CDT Lower Extremity Venous Report Patient Name: XAVIER TOMLINSON B : 1955 (69y 5m) Gender: F Study Date: 05/13/2025 08:00:04 AM Material Movers: SUNG Figueroa Order Provider: LELA JOHNSON Quality: [...] augmentation. Provider Notification: Lela Johnson NP. via [employer]. CONCLUSIONS: 1. There is no evidence of [...] 05/14/2025 Lower Extremity Venous Report Patient Name: XAVEIR TOMLINSON B : 1955 (69y 5m) Gender: F Study Date: 05/13/2025 08:00:04 AM Material Movers: SUNG Figueroa Order Provider: LELA JOHNSON Quality: [...] augmentation. Provider Notification: Lela Johnson NP. via [employer]. CONCLUSIONS: 1. There is no evidence of [...] David Souza MD 05/14/2025 7:27:32 AM CDT Lela Johnson NP [facility] US PROCEDURES Final Result * [...] - 05/12/2025 7:09 AM CDT Performed at: - [facility] [address] [id number] Filter Operator: Michael Singh PhD, Phone: [phone] us Chiara Colon MD LAB BLOOD ORDERABLES Angelica l Result [facility] - * (ABNORMAL) Comprehensive metabolic panel (05/11/2025 3:42 PM CDT) [facility] Glucose 80 70 - 99 mg/dL [facility] [...] - 05/12/2025 9:10 AM CDT Performed at: 01 - [facility] [address] [id number] Filter Operator: Michael Singh PhD, Phone: [phone] us Chiara Colon MD LAB BLOOD ORDERABLES Angelica l Result [facility] - * (ABNORMAL) CBC with auto differential (05/05/2025 3:36 PM CDT) [facility] WBC 10.6 3.4 - 10.8 x10E3/uL [facility] [...] 05/06/2025 7:09 AM CDT Performed at: - [facility] [address] [id number] Filter Operator: Michael Singh PhD, Phone: [phone] us Chiara Colon MD LAB BLOOD ORDERABLES Nagelica l Result [facility] - 01 * Comprehensive metabolic panel (05/05/2025 3:36 PM CDT) [facility] Glucose 93 70 - 99 mg/dL [facility] [...] - 05/06/2025 8:11 AM CDT Performed at: [address] [id number] Filter Operator: Michael Singh PhD, Phone: [phone] us Chiara Colon MD LAB BLOOD ORDERABLES Angelica l Result [facility] - * (ABNORMAL) CBC with auto differential (04/29/2025 3:35 PM CDT) Pathologist [facility] [place] WBC 11.1(H) 3.4 - 10.8 x10E3/uL [facility] [...] - 04/30/2025 7:09 AM CDT Performed at: [address] [id number] Filter Operator: Michael Singh PhD, Phone: [phone] us Chiara Colon MD LAB BLOOD ORDERABLES Angelica l Result [facility] - 01 * (ABNORMAL) Comprehensive metabolic panel (04/29/2025 3:35 PM CDT) [facility] Glucose 89 70 - 99 mg/dL [facility] [...] - 04/30/2025 8:11 AM CDT Performed at: [facility] [id number] Filter Operator: Michael Singh PhD, Phone: [phone] Chiara Colon MD LAB BLOOD ORDERABLES Angelica l Result Performing Organization Address City/[facility]/ZIP Co de Phone Number [facility] - 01 * Flow Leukemia/Lymphoma Bone marrow (04/26/2025 11:00 AM CDT) Cote Stain Test Completed Leukemia/Lymp wendi Result See separate Surgical Pathology report. [facility] Bone marrow 04/26/2025 11:0 0 AM CDT 04/26/2025 7:32 PM CDT Narrative [facility] - 04/27/2025 11:12 AM CDT Tube information: Green top (Sodium Heparin) Chiara Colon MD LAB PATHOLOGY ORDERABLES Final Result Performing Organization Address [facility] Co de Phone Number [facility] Department [place] [address] * Surgical pathology (04/26/2025 11:00 AM CDT) Bone marrow (Bone Marrow Biopsy) 04/26/2025 11:00 AM CDT 04/26/2025 3:54 PM CDT Narrative PATHOLOGY [facility] - 04/29/2025 4:48 PM CDT EPIC results best viewed via link to PDF [facility]ina [facility] [place] [address] Note to Patients: This report may contain [...] Gender: F : 1955 (Age: 69) Address: [address] [place] [address] [place] [address] [facility] #: [id number] Taken:04/26/2025 Received:04/26/2025 Reported: 04/29/2025 Patient Type: [facility] SPECIMEN Service: Laboratory Location: Physician(s): CHERI Correa Diagnosis: Bone marrow, left posterior iliac crest, core biopsy, clot section, and aspirate: - 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 CD3-positive T-cells (comprising 58% of lymphocytes) show no significant loss of joseph T-cell antigens and have a CD4 to CD8 ratio within normal limits. There is an expanded population of EM04-whipedmd cells (18% of lymphocytes) consistent with natural killer cells. A Cote-Giemsa stained cytospin from the flow cytometry specimen was examined for internal microbiology quality control technician purposes. Flow cytometry was performed using antibodies to the following cellular antigens: CD45, CD34, CD19, CD20, [place], Lambda, CD10, CD5, CD200, CD38, CD2, CD3, [...] Surgical Pathology and Flow Cytometry Departments at [facility] as part of an ongoing software quality automation engineer program and in compliance with federally mandated [...] Surgical Pathology and Flow Cytometry Departments of [facility]. It has not been cleared or approved by the U. S. Food and Drug Administration. IMAGES AND SCANNED DOCUMENTS, IF INCLUDED, ONLY VIEWABLE IN PDF VERSION OF REPORT Belén Campbell STUDIO PRODUCER LAB PATHOLOGY ORDERA BLES Final Result PATHOLOGY [facility] [address] [place], [place] [phone] * Cytogenetics Bone marrow (04/26/2025 10:57 AM CDT) Bone marrow (Bone Marrow Biopsy) 04/26/2025 10:57 AM CDT 04/26/2025 10:57 AM CDT [facility] DIAGNOSTIC LAB - CYTOGENETICS - 05/11/2025 4:44 PM CDT EPIC results best viewed via link to PDF [facility] Department of Pathol [address] [place] [id number] Patient Information Name: XAVIER TOMLINSON Gender: F : 1955 (Age: 69) Tissue: Bone Marrow w/ FISH Visit Information [facility] #: [id number] Facility: [facility] Service: [facility] Location: UNKNOWN Patient Type: [facility] Specimen Information: Culture #: [id number] Date Collected: 04/26/2025 Date Accessioned: 04/27/2025 Date [...] Hybridization (FISH) analysis are performed using the [employer] Imaging System. Report Electronically Reviewed and Signed Out By Sofía Carver MD, [facility], FAAPDate Reported: 05/11/2025Professor, Division of Genomic & [...] probe in the Clinical Genomics Laboratory at [facility]. Up to 1% of cells in normal [...] PDGFRB Dual Color, Break Apart Rearrangement Probe ([employer] at 7z77-14 and is interpreted as NORMAL. No rearrangement was observed in 200/200 nuclei, which is within the normal range established for this probe in the Clinical Genomics Laboratory at [facility]. Up to 1% of cells in normal [...] FGFR1 Dual Color, Break Apart Rearrangement Probe ([employer] at 8p11.2 and is interpreted as NORMAL. No rearrangement was observed in 197/200 nuclei, which is within the normal range established for this probe in the Clinical Genomics Laboratory at [facility]. Up to 1% of cells in normal [...] probe in the Clinical Genomics Laboratory at [facility]. Variant signal pattern was observed in 7/200 [...] developed and its performance characteristics determined by [facility]. It has not been cleared or approved by the FDA. The laboratory is regulated under CLIA as qualified to perform high-complexity testing. This test is used for clinical purposes. It should not be regarded as investigational or for research. Professional component performed by Gisela Man, Ph.D., [facility], [address], [place] (CLIA #: [id number]). Chromosome analysis and Fluorescence In Situ Hybridization (FISH) analysis are performed using the [employer] Imaging System. Report Electronically Reviewed and Signed Out By Gisela Man, PhDDate Reported: 04/29/2025 Chiara Colon MD LAB GENETIC TESTING Final Result [facility] DIAGNOSTIC LAB - CYTOGENETICS [address] [place] [address] * Diagnosis MyeloSeq Heme NGS Panel with Interpretation Bone marrow (04/26/2025 10:57 AM CDT) Bone marrow (Bone Marrow Biopsy) 04/26/2025 10:57 AM CDT 04/27/2025 8:36 AM CDT Narrative [facility] DIAGNOSTIC [facility] - CYTOGENETICS - 05/07/2025 2:07 PM CDT [facility] Pathology Services [address] [place] [address] Final Report Patient Name: XAVIER TOMLINSON Address: [address] [place] [address] [place] [address] Gender: F : 1955 (Age: 69) Accessioned: 04/27/2025 Taken: 04/26/2025 Received: 04/27/2025 Physician(s): Chiara Colon MD Service: [facility] Location: [facility] #: [id number] Patient Type: [facility] MyeloSeq Molecular DiagnosticsReported:05/07/2025 Varients Detected: GENE EXON [...] JAK2 p.V617F variant. Corresponding bone marrow biopsy ([id number]) shows hypercellular marrow with megakaryocytic hyperplasia and dysplasia without any significant increase in blasts or marrow fibrosis. Corresponding cytogenetic studies ([id number]) show no evidence of clonal aberrations by fluorescence in situ hybridization (chromosome analysis is pending). Specimen site: Bone marrow Variant Detail: Gene Location (GRCh38) Reference allele Variant allele Transcript:Coding change Population Frequency* JAK2 [id number] G T [id number]:c.1849G>T 0.060%*The population allele frequency represents the maximum [...] the CLIA Licensed Environment laboratory at the [facility] ([facility], CLIA #[id number], CAP #[id number]), Dr. Derrick Alfonso MD, PhD, FCAP, [employer]. [address] [place] [address], [address] [place] [phone] . The [facility] laboratory is regulated under CLIA as certified to perform high-complexity testing. Interpretation of sequencing results and case sign out is performed by Pathology and Immunology faculty in the Division of Genomic and Molecular Pathology (-[facility], CLIA #[id number], CAP #[id number]) Dr. Cyndie Canas Ph.D., [employer]. [facility], [facility], [facility] [address], [place] [address] [phone] . The [facility] is regulated [...] 30GBases of sequencing data generated on an [employer]. This test has been validated according to CAP guidelines for the detection of single nucleotide variants (SNVs) and indels (max validated size 117bp). This assay has two limits of detection: for new variants (not previously reported by [facility]) sensitivity is limited to 2% VAF; for [...] information and correlations are subject to change management time in response to future scientific and [...] PLATT is provided on an IS basis. PLATT makes no representation or warranty of any [...] By Vasiliy Nunez MD, PhD 05/07/2025 14:05:22 Chiara Colon MD LAB PATHOLOGY ORDERABLES Final Result [facility] - CYTOGENETICS [address] [place] [address] * (ABNORMAL) Differential, auto (04/26/2025 9:38 AM CDT) Neutrophil abs 8.85(H) 1.50 - 6.50 K/cumm Comment:Testing performed by : [address] [address] Imm gran abs 0.06 0.00 - 0.10 K/cumm KRISTAL Comment:Testing performed by : [address] [address] Lymphocyte abs 1.75 0.80 - 3.30 K/cumm KRISTAL Comment:Testing performed by : [address] [address] Monocyte abs 0.55 0.20 - 0.80 K/cumm KRISTAL Comment:Testing performed by : [address] [address] Eosinophil abs 0.23 0.00 - 0.50 K/cumm KRISTAL Comment:Testing performed by : [address] [address] Basophil abs 0.23(H) 0.00 - 0.10 K/cumm KRISTAL Comment:Testing performed by : [address] [address] Neutrophil pct 75.8 % [facility] Comment: Interpretive Data Percent cell count reference ranges are not reported, since discordance with absolute values may lead to misinterpretation of CBC data. Current Interpretive Data was last revised on 2018. Testing performed by: [address] [address] Imm gran pct 0.5 % KRISTAL Comment: Interpretive Data Percent cell count reference ranges are not reported, since discordance with absolute values may lead to misinterpretation of CBC data. Current Interpretive Data was last revised on 2018. Testing performed by: [address] [address] Lymphocyte pct 15.0 % [facility] Comment: Interpretive Data Percent cell count reference ranges are not reported, since discordance with absolute values may lead to misinterpretation of CBC data. Current Interpretive Data was last revised on 2018. Testing performed by: [address] [address] Monocyte pct 4.7 % [facility] Comment: Interpretive Data Percent cell count reference ranges are not reported, since discordance with absolute values may lead to misinterpretation of CBC data. Current Interpretive Data was last revised on 2018. Testing performed by: [address] [address] Eosinophil pct 2.0 % [facility] Comment: Interpretive Data Percent cell count reference ranges are not reported, since discordance with absolute values may lead to misinterpretation of CBC data. Current Interpretive Data was last revised on 2018. Testing performed by: [address] [address] Basophil pct 2.0 % [facility] Comment: Interpretive Data Percent cell count reference ranges are not reported, since discordance with absolute values may lead to misinterpretation of CBC data. Current Interpretive Data was last revised on 2018. Testing performed by: [address] [address] Blood 04/26/2025 9:38 AM CDT 04/26/2025 9:43 AM CDT us Chiara Colon MD LAB BLOOD ORDERABLES Angelica mian Result [facility] [address] [facility] Department [place] [address] * (ABNORMAL) CBC with auto differential (04/26/2025 9:38 AM CDT) WBC 11.67(H) 3.80 - 9.90 K/cumm Comment:Testing performed by : [address] [address] Hgb 14.8 11.9 - 15.5 g/dL KRISTAL Comment:Testing performed by : [address], [address] Hct 47.6(H) 35.6 - 45.5 % KRISTAL Comment:Testing performed by : [address] [address] Plt 657(H) 150 - 400 K/cumm KRISTAL Comment:Testing performed by : [address] [address] MPV 10.8 9.1 - 12.3 fL KRISTAL Comment:Testing performed by : [address] [address] RBC 6.20(H) 3.90 - 5.20 M/cumm KRISTAL Comment:Testing performed by : [address] [address] MCV 76.8(L) 81.3 - 96.4 fL KRISTAL Comment:Testing performed by : [address] [address] MCH 23.9(L) 27.1 - 33.3 pg KRISTAL Comment:Testing performed by : [address], [address] MCHC 31.1(L) 32.3 - 35.7 g/dL KRISTAL Comment:Testing performed by : [address] [address] RDW CV 18.9(H) 11.1 - 14.9 % KRISTAL Comment:Testing performed by : [address] [address] RDW SD 48.1 35.7 - 48.1 fL KRISTAL Comment:Testing performed by : [address] [address] NRBC abs 0.00 0.00 - 0.01 K/cumm KRISTAL Comment:Testing performed by : [address] [address] ANC Prelim 8.85(H) 1.50 - 6.50 K/cumm KRISTAL Comment: Interpretive Data The rapid ANC is a preliminary automated count and may vary from the final ANC (Neut Abs) reported in the WBC differential that follows. Current interpretive data was last revised 2025. Testing performed by: [address] [address] Blood 04/26/2025 9:38 AM CDT 04/26/2025 9:43 AM CDT us Chiara Colon MD LAB BLOOD ORDERABLES Angelica pappas Result [facility] [address] [facility] Department [place] [address] * (ABNORMAL) CBC with auto differential (04/15/2025 3:10 PM CDT) Pathologist [facility] WBC 11.7(H) 3.4 - 10.8 x10E3/uL [facility] [...] - 04/16/2025 7:09 AM CDT Performed at: [address] [id number] Filter Operator: Michael Singh PhD, Phone: [phone] us Chiara Colon MD LAB BLOOD ORDERABLES Angelica pappas Result [facility] - 01 * Erythropoietin (04/15/2025 3:10 PM CDT) [facility] Erythropoietin 3.2 2.6 - 18.5 mIU/mL [facility] - 01 Comment: Xetawaveel DxI 800 Immunoassay System Values obtained with different assay methods or kits cannot be used interchangeably. Results cannot be interpreted as absolute evidence of the presence or absence of malignant disease. Blood 04/15/2025 3:10 PM CDT 04/15/2025 Narrative [facility] - 04/16/2025 5:09 PM CDT Performed at: [address] [place] [id number] Filter Operator: Michael Singh PhD, Phone: [phone] us Chiara Colon MD LAB BLOOD ORDERABLES Angelica l [facility] - * Comprehensive metabolic panel (04/15/2025 3:10 PM CDT) [facility] Glucose 86 70 - 99 mg/dL [facility] [...] - 04/16/2025 7:09 AM CDT Performed at: - [address] [id number] Filter Operator: Michael Singh PhD, Phone: [phone] Chiara Colon MD LAB BLOOD ORDERABLES Angelica l [facility] - 01 * (ABNORMAL) JAK2/CALR/MPL testing cascade (04/12/2025 10:31 AM CDT) JAK2 V617F Positive(A) Not Detected [facility] Comment:Testing performed by : [facility], [address] [place] [address]., [address] JAK2 V617F % 62.77% KRISTAL NESS Comment:Testing performed by : [facility], [address] [place] [address], [address] JAK2 V617F Interpretation Positive: The JAK2 V617F [...] pathological findings for a definitive diagnosis. KRISTAL NESS Comment:Testing performed by : [facility], [address] [place]., [address] JAK2 V617F Specimen Blood KRISTAL NESS Comment:Testing performed by : [address], [address] JAK2 V617F Result Review Final report reviewed by: Arely Obregon MS, MB([facility]) Surveyor Mine, on 04/15/2025 13:59:45 CDT. KRISTAL NESS Comment: [...] the exponential phase of PCR releases the swine extension field specialist dye from the quencher and the signal [...] 1. Belinda Yen D, Elisa R, Hu CASE. Genetic basis and molecular profiling in myeloproliferative neoplasms. Blood. 2022Feb 21;14116):1077 3 921. PMCID: [id number] This test was performed at: [facility], [facility], [facility]#[id number], Swapna Verma, Ph.D., [place], [address], [place] Current interpretive data was last revised 2024. Testing performed by: [facility], [address] [place] [address]., [address] Blood 04/12/2025 10:3 1 AM CDT 04/12/2025 2:45 PM CDT Chiara Colon MD LAB GENETIC TESTING Final Result K[facility]STAL [address] [facility] Department [place] [address] [facility] * Cytogenetics Specimen Tracking Blood (04/12/2025 10:31 AM CDT) [facility] Cytotenetics Tracking Order Received Comment:Testing performed by : [facility], [address] [facility], [place]., [address] Blood 04/12/2025 10:3 1 AM CDT 04/12/2025 1:58 PM CDT Narrative K[facility] - 04/30/2025 12:16 PM CDT Please read the Cytogenetics Epic requisition for specimen collection requirements. Chiara Cooln MD LAB BODY FLUIDS AND STOOL S ORDERABLES Final Result Performing Organization Address [facility] Co de Phone Number [place] [phone] [facility] [place] [address] * Slide review - pathologist (04/12/2025 10:31 AM CDT) Slide review by See Comment Comment: On smear review, the white cells, red cells and platelets are elevated. No immature WBCs seen. Large platelets are present. RBCs appear slightly hypochromic and anisocytosis is present. Reviewed by Karen Solis MLS(ASCP) Testing performed by: [address] [address] Blood 04/12/2025 10:3 1 AM CDT 04/12/2025 10:44 AM CDT Chiara Colon MD LAB BLOOD ORDERABLES Angelica l Result Performing Organization Address [facility] Co de Phone Number [facility] [address] [facility] Department [place] [address] * (ABNORMAL) Iron profile w/ IBC (04/12/2025 10:31 AM CDT) Iron 33(L) 35 - 145 mcg/dL Comment:Testing performed by : [address] [address] TIBC 438(H) 250 - 400 mcg/dL KRISTAL Comment:Testing performed by : [address] [address] Transferrin saturation 8(L) 20 - 50 % KRISTAL Comment:Testing performed by : [facility], [address] [place] [address], [place]., [address] Blood 04/12/2025 10:3 1 AM CDT 04/12/2025 11:41 AM CDT Chiara Colon MD LAB BLOOD ORDERABLES Angelica l Result Performing Organization Address [facility] Co de Phone Number [facility] [address] [facility] Department [place] [address] * Hepatitis panel, acute Blood (04/12/2025 10:31 AM CDT) Hep A IgM Nonreactive Nonreactive Comment: Interpretive Data: If Hep A IgM Ab is reported as Equivocal, a new sample should be drawn in two weeks for testing. Current interpretive data was last revised on 20. Hep B core IgM Nonreactive Nonreactive KRISTAL Comment: Interpretive Data If HepB Core IgM Ab is reported as Equivocal, a new sample should be drawn in two weeks for testing. Current interpretive data was last revised on 20. Hep C Ab Nonreactive Nonreactive KRISTAL Comment: Antibodies to HCV not detected. Does [...] last revised on 2020. HepBsAg Nonreactive Nonreactive K[facility]AL Blood 04/12/2025 10:3 1 AM CDT 04/12/2025 12:17 PM CDT Chiara Colon MD LAB MICROBIOLOGY - GENERA L ORDERABLES Final Result Performing Organization Address City/[facility] Co de Phone Number KRISTAL [address] [facility] Department [place] [address] * Ferritin (04/12/2025 10:31 AM CDT) Ferritin 33 15 - 150 ng/mL Comment:Testing performed by : [facility], [address] [place] [address]., [address] Blood 04/12/2025 10:3 1 AM CDT 04/12/2025 11:41 AM CDT us Chiara Colon MD LAB BLOOD ORDERABLES Angelica l Result K[facility]AL [address] [facility] Department [place] [address] * Cytogenetics Blood (04/12/2025 10:30 AM CDT) Blood (Peripheral Blood For Pathologist Review) 04/12/2025 10:30 AM CDT 04/12/2025 10:30 AM CDT Narrative [facility] DIAG[facility] - CYTOGENETICS - 04/19/2025 8:43 PM CDT [facility] results best viewed via link to PDF [facility] Department of Pathol [address] [place] [address] Patient Information Name: XAVIER TOMLINSON Gender: F : 1955 (Age: 69) Tissue: Leukemic Blood Visit Information Hospital #: [id number] Facility: [facility] Service: [facility] Location: [facility] OUTREACH [facility] Specimen Information: Culture #: [id number] Date Collected: 04/12/2025 Date Accessioned: 04/12/2025 Date [...] was performed on nuclei with the LSI [id number] Tricolor, Dual Fusion Translocation Probe ([employer] for ASS1/ABL1 at 9q34 and BCR at 22q11.2 and is interpreted as NORMAL. No rearrangement was observed in 189/200 nuclei, which is within the normal range (up to 1%) established for this probe in the [facility]omics Laboratory at [facility]. Variant signal pattern was observed in 11/200 [...] developed and its performance characteristics determined by [facility]. It has not been [...] Professor, Division of Genomic & Molecular Pathology us Chiara Colon MD LAB GENETIC TESTING Final Result [facility] - CYTOGENETICS [address] [place] [address] * eGFR (04/06/2025 11:22 AM CDT) eGFR [...] was last reviewed 2021. Testing performed by: [facility], [address] [place] [address]., [address] Blood 04/06/2025 11:2 2 AM CDT 04/06/2025 11:27 AM CDT us Chiara Colon MD LAB BLOOD ORDERABLES Angelica l Result KRISTAL [address] [facility] Department [place] [address] * (ABNORMAL) Differential, auto (04/06/2025 11:22 AM CDT) Neutrophil abs 7.85(H) 1.50 - 6.50 K/cumm Comment:Testing performed by : [address], [place]., [address] Imm gran abs 0.07 0.00 - 0.10 K/cumm KRISTAL Comment:Testing performed by : [address], [place]., [address] Lymphocyte abs 2.29 0.80 - 3.30 K/cumm KRISTAL Comment:Testing performed by : [address], [place]., [address] Monocyte abs 0.78 0.20 - 0.80 K/cumm [facility] Comment:Testing performed by : [address], [place]., [address] Eosinophil abs 0.28 0.00 - 0.50 K/cumm KRISTAL Comment:Testing performed by : [address], [place]., [address] Basophil abs 0.23(H) 0.00 - 0.10 K/cumm [facility] Comment:Testing performed by : [address] [address] Neutrophil pct 68.3 % [facility] Comment: Interpretive Data Percent cell count reference ranges are not reported, since discordance with absolute values may lead to misinterpretation of CBC data. Current Interpretive Data was last revised on 2018. Testing performed by: [address] [address] Imm gran pct 0.6 % [facility] Comment: Interpretive Data Percent cell count reference ranges are not reported, since discordance with absolute values may lead to misinterpretation of CBC data. Current Interpretive Data was last revised on 2018. Testing performed by: [address] [address] Lymphocyte pct 19.9 % [facility] Comment: Interpretive Data Percent cell count reference ranges are not reported, since discordance with absolute values may lead to misinterpretation of CBC data. Current Interpretive Data was last revised on 2018. Testing performed by: [address] [address] Monocyte pct 6.8 % [facility] Comment: Interpretive Data Percent cell count reference ranges are not reported, since discordance with absolute values may lead to misinterpretation of CBC data. Current Interpretive Data was last revised on 2018. Testing performed by: [address] [address] Eosinophil pct 2.4 % K[facility]STAL Comment: Interpretive Data Percent cell count reference ranges are not reported, since discordance with absolute values may lead to misinterpretation of CBC data. Current Interpretive Data was last revised on 2018. Testing performed by: [address] [address] Basophil pct 2.0 % K[facility]AL Comment: Interpretive Data Percent cell count reference ranges are not reported, since discordance with absolute values may lead to misinterpretation of CBC data. Current Interpretive Data was last revised on 2018. Testing performed by: [address] [address] Blood 04/06/2025 11:2 2 AM CDT 04/06/2025 11:27 AM CDT us Chiara Colon MD LAB BLOOD ORDERABLES Angelica l Result [facility] [address] [facility] Department [place] [address] * (ABNORMAL) CBC with auto differential (04/06/2025 11:22 AM CDT) WBC 11.50(H) 3.80 - 9.90 K/cumm Comment:Testing performed by : [address] [address] Hgb 14.8 11.9 - 15.5 g/dL KRISTAL Comment:Testing performed by : [address] [address] Hct 47.4(H) 35.6 - 45.5 % KRISTAL Comment:Testing performed by : [address] [address] Plt 648(H) 150 - 400 K/cumm KRISTAL Comment:Testing performed by : [address] [address] MPV 11.1 9.1 - 12.3 fL KRISTAL Comment:Testing performed by : [address], [address] RBC 6.18(H) 3.90 - 5.20 M/cumm KRISTAL Comment:Testing performed by : [address], [address] MCV 76.7(L) 81.3 - 96.4 fL KRISTAL Comment:Testing performed by : [address], [address] MCH 23.9(L) 27.1 - 33.3 pg KRISTAL Comment:Testing performed by : [address], [address] MCHC 31.2(L) 32.3 - 35.7 g/dL KRISTAL Comment:Testing performed by : [address], [address] RDW CV 18.0(H) 11.1 - 14.9 % KRISTAL Comment:Testing performed by : [address], [address] RDW SD 45.7 35.7 - 48.1 fL KRISTAL Comment:Testing performed by : [address], [address] NRBC abs 0.00 0.00 - 0.01 K/cumm KRISTAL Comment:Testing performed by : [address], [address] ANC Prelim 7.85(H) 1.50 - 6.50 K/cumm KRISTAL Comment: Interpretive Data The rapid ANC is a preliminary automated count and may vary from the final ANC (Neut Abs) reported in the WBC differential that follows. Current interpretive data was last revised 2025. Testing performed by: [address], [address] Blood 04/06/2025 11:2 2 AM CDT 04/06/2025 11:27 AM CDT Chiara Colon MD LAB BLOOD ORDERABLES Angelica l Result Performing Organization Address City/[facility]/ZIP Co de Phone Number ANGELA[address] [address] * Erythrocyte sedimentation rate (04/06/2025 11:22 AM CDT) Erythrocyte sedimentation rate 17 1 - 30 mm/hr Comment:Testing performed by : [address] [address] Blood 04/06/2025 11:2 2 AM CDT 04/06/2025 1:45 PM CDT Chiara Colon MD LAB BLOOD ORDERABLES Angelica l Result Performing Organization Address [facility] Co de Phone Number [address] [address] * CRP (acute phase) (04/06/2025 11:22 AM CDT) Pathologist [facility] CRP 0.4 <=10.0 mg/L Comment:Testing performed by : [address] [address] Blood 04/06/2025 11:2 2 AM CDT 04/06/2025 11:27 AM CDT Chiara Colon MD LAB BLOOD ORDERABLES Angelica l Result Performing Organization Address City/[facility] Co de Phone Number [address] [place] [address] * Comprehensive metabolic panel (04/06/2025 11:22 AM CDT) Pathologist [facility] Sodium 140 135 - 145 mmol/L Comment:Testing performed by : [address] [address] Potassium, pl 4.4 3.3 - 4.9 mmol/L KRISTAL Comment:Testing performed by : [address] [address] Chloride 103 97 - 110 mmol/L KRISTAL Comment:Testing performed by : [address] [address] CO2 27 22 - 32 mmol/L [facility] Comment:Testing performed by : [address] [address] Anion gap 10 2 - 15 mmol/L KRISTAL Comment:Testing performed by : [address] [address] BUN 23 6 - 25 mg/dL [facility] Comment:Testing performed by : [address], [place]., [address] Creatinine 0.90 0.60 - 1.10 mg/dL KRISTAL Comment:Testing performed by : [address] [address] Glucose 78 70 - 199 mg/dL [facility] Comment: Interpretive Data Fasting glucose >/= 126 [...] was last revised 2022. Testing performed by: [address] [address] Calcium 9.5 8.5 - 10.3 mg/dL [facility] Comment:Testing performed by : [address] [address] Bilirubin, total 0.6 0.1 - 1.2 mg/dL KRISTAL Comment:Testing performed by : [address] [address] Protein, pl 7.6 6.5 - 8.5 g/dL KRISTAL Comment:Testing performed by : [address] [address] Albumin 4.6 3.5 - 5.0 g/dL [facility] NESS Comment:Testing performed by : [facility], [address] [place] [address]., [address] Alk phos 104 40 - 130 Units/L KRISTAL NESS Comment:Testing performed by : [address] [address] ALT 21 7 - 45 Units/L KRISTAL NESS Comment:Testing performed by : [facility], [address] [place] [address]., [address] AST 28 10 - 45 Units/L KRISTAL NESS Comment:Testing performed by : [address] [address] Blood 04/06/2025 11:2 2 AM CDT 04/06/2025 11:27 AM CDT us Chiara Colon MD LAB BLOOD ORDERABLES Angelica l Result Performing Organization Address City/State/[facility] Co de Phone Number KRISTAL [address] [facility] Department [place] [address] from Last 3 Months Insurance [facility] MEDICARE ADVANTAGE [facility] MEDICARE ADVANTAGE Care Teams Asphalt Roller Operator Relationship Specialty Start Date End Date Mark Kaplan MD PCP - General 08/29/15
--- OUTSIDE RECORDS SUMMARY | 2025-06-07 13:56 | XMS_ITS | Clinical Summary ---
Author Organization [facility] Address [address] [place] [address] Care Team Providers Care Service Station Console Operator Name Role Phone Unavailable Primary Care Provider Unavailabl e Source Comments [facility],non-owned Affiliates and Associated Physician Practices is amultiple site organization consisting of ambulatory clinics and hospital sitesin [place], [place], [place] and [place]. This disclosure is being madepursuant to the Care Everywhere program and may not contain all information available regarding this patient. Last updated 18.[facility] Social History Tobacco Use Types Packs/Day Years Used Date Smoking Tobacco: Never Assessed Comments Unknown Sex and Gender Information Value Date Recorded Sex Assigned at Not on file Legal Sex Female 5:59 PM [employer] Gender Identity Not on file Sexual Orientation Not on file Plan of Treatment Health Maintenance Due Date Last Done Comments BONE DENSITY TESTING 1955 COLOGUARD (AGES 45-75) - COL ON CA SCREENING 1955 COLON MONITORING 1955 COLONOSCOPY - COLON CA SCREENING 1953 CT COLONOGRAPHY - COLON CA SCREENING 1955 Colorectal Cancer Screening 1955 FIT - COLON CA SCREENING 1955 FLEX SIG - COLON CA SCREENING 1955 LIPID TESTING 1955 MAMMOGRAM 1953 HEPATITIS C SCREENING 12/10/1971 DTAP/TDAP/TD VACCINES (1 - Tdap) 1972 PNEUMOCOCCAL VACCINE 50+ (1 of 1 - PCV) 2003 ZOSTER VACCINE (1 of 2) 2003 COVID-19 VACCINE ( - 2023-2 5 season) 2024 DEPRESSION SCREENING 11/04/2024 INFLUENZA VACCINE (#1) 2025 Respiratory Syncytial Virus (RSV) Vaccine Pt: or over 60 yrs (1 - 1-dose 75+ series) 2028 HEPATITIS B VACCINE Aged Out No longe r eligible based on patient's age to complete this topic HIB VACCINE Aged Out No longer eligi ble based on patient's age to complete this topic HPV VACCINE Aged Out No longer eligi ble based on patient's age to complete this topic MENINGOCOCCAL (Group B) VACC INE SHARED DECISION-MAKING Aged Out No longer eligibl e based on patient's age to complete this topic MENINGOCOCCAL GROUPS A/C/Y/W VACCINE Aged Out No longer eligible b ased on patient's age to complete this topic Insurance [employer]
== END 2025-06-07 13:43 | disposition home or self-care (01) ==
LOC: ANHIMG 13:47
PROVIDERS: PCP Family Medicine; Visit Provider Physician Assistant Medical
DX: Z12.31 Encounter for screening mammogram for malignant neoplasm of breast (principal); M85.89 Other specified disorders of bone density and structure, multiple sites; Z78.0 Asymptomatic menopausal state
CPT/HCPCS: 77063; 77067; 77080